=== PATIENT | female | born 1940 | race Caucasian/White ===

== ENCOUNTER 2016-12-19 20:53 | Inpatient (IN) ==
[2016-12-19 21:27] LABS: BASO% 0.1 % (0.0-0.8); EOS# 0.01 X1000 (0.0-0.7); EOS% 0.1 % (0.0-10.0); IMM GRAN# 0.13 X1000 (0.0-0.04); IMM GRAN% 0.8 % (0.0-0.5); LYMPH# 0.79 X1000 (1.2-3.4); LYMPH% 5.1 % (20.5-51.1); MANUAL DIFF NEEDED? NO; MCH 25.3 PG (27-31); MCV 93.7 FL (81-99); MONO# 1.13 X1000 (0.11-0.59); MONO% 7.3 % (1.7-9.3); MPV 10.4 FL (7.4-10.4); NEUT% 86.6 % (42.2-75.2); PLT 346 X1000 (130-400); RBC 3.95 XMIL (4.2-5.4)
[2016-12-19 21:33] LABS: BE 17.2 mmoll (-3.0-3.0); BLOOD TYPE ARTERIAL; DRAW SITE L RADIAL; METHB 0.7 % (0.0-1.5); O2(CT) 13.9 mL/dL (15.0-23.0); PO2(98.6) 88 mmHg (60-100); SAMPLE BLOOD; SAO2 97.8 % (95.0-100.0); THB 10.3 g/dL (11.5-17.4); pH(98.6) 7.27 (7.35-7.45)
[2016-12-19 21:51] LABS: ALLEN TEST YES; MODALITY CANNULA; PCO2(98.6) 104 mmHg (35-45)
[2016-12-19 22:08] LABS: AGAP 6; ALBUMIN 3.7 g/dL (3.5-5.0); ALKALINE PHOSPHATASE 160 U/L (32-104); BUN 18 mg/dL (8-22); CHLORIDE 95 mmol/L (98-107); CK PROFILE 53 U/L (24-173); COSMO 282; GOT 14 U/L (10-30); GPT 11 U/L (10-36); POTASSIUM 4.9 mmol/L (3.5-5.1); SODIUM 139 mmol/L (136-145); TCO2 38 mmol/L (25-35); TOTAL PROTEIN 7.5 g/dL (6.3-8.3)
--- NOTE | 2016-12-20 00:18 | Diag Imaging Result Document ---
PROCEDURE NAME: CHEST-PORTABLE - 12/19/2016 SINGLE FRONTAL RADIOGRAPH OF THE CHEST: COMPARISON: 12/05/2016. FINDINGS: Mild increased lung markings at the lung bases are stable. There are no new consolidations. Cardiac silhouette is stable. There is no pleural fluid collection identified. IMPRESSION: Increased lung markings at the lung bases that are stable and may represent mild atelectasis.
--- NOTE | 2016-12-20 00:35 | PROVIDER DOCUMENTATION ---
This chart was entered by Joseph Agustin Scribe, acting as scribe for Kurtis Jaime DO. HPI-Respiratory General - General Chief Complaint: Shortness of Breath Stated Complaint: SOB Time Seen by Provider: 12/19/16 21:06 Source: patient Allergies/Adverse Reactions: Patient Allergies Allergy/AdvReac Type Severity Reaction Status Date / Time levofloxacin [From Levaquin] AdvReac Mild reddness Verified 10/05/16 15:30 at IV site Home Medications: Home Medication List Medication Instructions Recorded Confirmed Last Taken Type Azelastine/Fluticasone [Dymista 1 spray NS DAILY 08/04/13 11/07/16 10/05/16 History Nasal [place]] Gabapentin 300 mg PO TID 08/04/13 11/07/16 10/05/16 History Tiotropium [place] Inhaler 1 puff INH RTDAILY 08/04/13 11/07/16 11/06/16 History [Spiriva] Buspirone [Buspar] 15 mg PO BID #20 tablet 08/17/13 11/07/16 10/05/16 Rx Memantine [Namenda] 10 mg PO BID #20 tablet 08/17/13 11/07/16 11/06/16 Rx Multivit,Fe,Ca,FA & Min [Thera M 1 each PO DAILY #0 tablet 08/17/13 11/07/16 Rx Plus] Albuterol [Albuterol Neb] 0.083 mg INH [id number] 01/14/14 11/07/16 10/05/16 History Amino Acids/Protein Hydrolys 30 ml PO DAILY 01/14/14 11/07/16 10/05/16 History [Pro-Stat 101 Liquid] Fluticasone 50 Mcg Nasal [place] 1 spray MILES DAILY 01/14/14 11/07/16 10/05/16 History [Flonase] Melatonin 3 mg PO QHS 01/14/14 11/07/16 10/05/16 History Metoclopramide [Reglan] 5 mg PO TID 01/14/14 11/07/16 10/05/16 History Potassium Chloride E.r. [Klor-Con] 2 tab PO DAILY 01/14/14 11/07/16 10/05/16 History Solifenacin Succinate [Vesicare] 10 mg PO DAILY 01/14/14 11/07/16 10/05/16 History Polyethylene Glycol 3350 [Miralax] 17 gm PO BID 10/05/16 11/07/16 10/05/16 History Acetaminophen [Pain Relief] 325 mg PO Q4H PRN PRN 11/07/16 11/07/16 Unknown History Docusate Sodium [Dulcolax Stool 100 mg PO PRN PRN 11/07/16 11/07/16 Unknown History Softener] Furosemide [Lasix] 40 mg PO DAILY 11/07/16 11/07/16 Unknown History Hydrocortisone 1% Cream 1 applicator TOP DIRECTED 11/07/16 11/07/16 Unknown History Loperamide [Imodium] 2 mg PO PRN PRN 11/07/16 11/07/16 Unknown History Omeprazole [Prilosec] 20 mg PO DAILY 11/07/16 11/07/16 Unknown History Sertraline [Zoloft] 50 mg PO DAILY 11/07/16 11/07/16 Unknown History Apixaban [Eliquis] 5 mg PO BID #60 tablet 11/12/16 Unknown Rx CefDINIR [Omnicef] 300 mg PO BID #14 capsule 11/12/16 Unknown Rx Prednisone 20 mg PO DAILY #5 tablet 11/12/16 Unknown Rx - History of Present Illness-Resp Nature of Presenting Problem: 76 yo F presents to the ER with complaint of SOB and uncontrolled shaking. Pt also complains of abnormal generalized weakness and family states she is not acting normal. Pt appears to be jaundice and has a hx of dementia. Quality of Pain: reports: none Severity in ED: reports: mild Onset/Duration: reports: just prior to arrival Timing: reports: still present Cough Quality/Degree: reports: no cough Associated Symptoms: reports: shortness of breath, other (pt is shaking) Review of Systems - Adult - REVIEW OF SYSTEMS - ADULT Constitutional: denies: chills, fever Cardiovascular: denies: chest pain, palpitations Respiratory: reports: shortness of breath, wheezing. denies: cough Gastrointestinal: reports: vomiting. denies: abdominal pain, nausea Musculoskeletal: denies: back pain, neck pain All Other Systems: Reviewed and Negative Past History - Adult - PAST MEDICAL HISTORY-ADULT Review of Records: reports: Old Records Reviewed, Nursing Assessment Review, Medications Reviewed Major Childhood Illnesses: reports: denies history Cardiovascular: reports: HTN Respiratory: reports: COPD Gastrointestinal: reports: denies history Obstetrical/Gynecological: reports: denies history Genitourinary: reports: denies history Musculoskeletal: reports: denies history Neurological: reports: dementia Psychiatric: reports: anxiety Endocrine/Immune: reports: denies history Other Conditions: reports: denies history - PRIOR SURGERIES/PROCEDURES Surgical/Procedure History: reports: reviewed, not pertinent - PRIOR HOSPITALIZATIONS Prior Hospitalizations: reports: none - IMMUNIZATION STATUS Childhood Immunizations: See Nurse Assessment Flu Vaccine: See Nurse Assessment - FAMILY HISTORY Family History: reviewed, not pertinent Physical Exam-General - PHYSICAL EXAM-ADULT Initial Vital Signs Reviewed: Yes - CONSTITUTIONAL General Appearance: alert, mild distress - HEAD, EARS, NOSE, MOUTH & THROAT HENMT: normocephalic/atraumatic, moist mucous membranes - NECK Neck: non-tender, full range of motion, supple - SKIN Integumentary: warm/dry, jaundice Progress - PLAN OF CARE/RESULTS Progress/Plan/Lab Results: Vital Signs - 8 hr 12/19/16 20:54 12/19/16 21:52 12/20/16 00:27 Temperature 98.3 F Pulse Rate 110 H 114 H Respiratory Rate 20 22 Blood Pressure 133/78 105/73 O2 Sat by Pulse Oximetry 95 95 90 L Laboratory Results - last 24 hr 12/19/16 12/19/16 12/19/16 21:15 21:15 21:15 WBC 15.56 H RBC 3.95 L Hgb 10.0 L Hct 37.0 MCV 93.7 MCH 25.3 L MCHC 27.0 L RDW Std Deviation 17.2 H Plt Count 346 MPV 10.4 Immature Gran % (Auto) 0.8 H Neut % (Auto) 86.6 H Lymph % (Auto) 5.1 L Lake % (Auto) 7.3 Eos % (Auto) 0.1 Baso % (Auto) 0.1 Immature Gran # (Auto) 0.13 H Neut # (Auto) 13.48 H Lymph # (Auto) 0.79 L Lake # (Auto) 1.13 H Eos # (Auto) 0.01 Baso # (Auto) 0.02 Specimen Type Sample Site pH pCO2 pO2 HCO3 Base Excess Oxyhemoglobin ABG O2 Sat (Calculated) ABG O2 Saturation ABG Carboxyhemoglobin ABG Methemoglobin Ramon Test A-a O2 Difference Total Hemoglobin Lactate Liter Flow Blood Gas Modality FiO2 % Sodium 139 Potassium 4.9 Chloride 95 L Carbon Dioxide 38 H Anion Gap 6 BUN 18 Creatinine 0.8 Estimated GFR/1.73 m2 > 60 BUN/Creatinine Ratio 23 Glucose 152 H Calculated Osmolality 282 Calcium 9.0 Total Bilirubin 0.20 AST 14 ALT 11 Alkaline Phosphatase 160 H Ammonia Creatine Kinase 53 Troponin T < 0.010 Total Protein 7.5 Albumin 3.7 Globulin 4.0 Albumin/Globulin Ratio 1.0 12/19/16 12/19/16 21:19 21:40 WBC RBC Hgb Hct MCV MCH MCHC RDW Std Deviation Plt Count MPV Immature Gran % (Auto) Neut % (Auto) Lymph % (Auto) Lake % (Auto) Eos % (Auto) Baso % (Auto) Immature Gran # (Auto) Neut # (Auto) Lymph # (Auto) Lake # (Auto) Eos # (Auto) Baso # (Auto) Specimen Type ARTERIAL Sample Site L RADIAL pH 7.27 L pCO2 104 H* pO2 88 HCO3 38.3 H Base Excess 17.2 H Oxyhemoglobin 94.9 L ABG O2 Sat (Calculated) 13.9 L ABG O2 Saturation 97.8 ABG Carboxyhemoglobin 2.30 ABG Methemoglobin 0.7 Ramon Test YES A-a O2 Difference 39.0 Total Hemoglobin 10.3 L Lactate 0.50 Liter Flow 4.0 Blood Gas Modality CANNULA FiO2 % 36.0 Sodium Potassium Chloride Carbon Dioxide Anion Gap BUN Creatinine Estimated GFR/1.73 m2 BUN/Creatinine Ratio Glucose Calculated Osmolality Calcium Total Bilirubin AST ALT Alkaline Phosphatase Ammonia 53 H Creatine Kinase Troponin T Total Protein Albumin Globulin Albumin/Globulin Ratio Orders Category Date Time Status Admit - [facility] Routine AdmDCTranf 12/20/16 00:36 Ordered Cardiac Monitoring DIRECTED Care 12/19/16 21:09 Active Finger Stick Blood Sugar (ED) DIRECTED Care 12/19/16 21:09 Active Neurological Check Q4H Care 12/20/16 00:37 Active Oxygen Therapy- ED Nursing DIRECTED Care 12/19/16 21:09 Active Saline Loc DIRECTED Care 12/20/16 00:36 Active Saline Loc NOW Care 12/19/16 21:09 Active Vital Signs Order ARRIVAL TO ROOM Care 12/20/16 00:36 Active Regular Diet Diet 12/20/16 00:38 Active CHEST-PORTABLE [RAD] Stat Exams 12/19/16 21:[address] ABD/PELVIS W/ IV CONT ONLY [CT] Stat Exams 12/19/16 21:26 Taken HEAD W/O CONTRAST [CT] Stat Exams 12/19/16 21:26 Taken ABG [RESP] Routine Lab 12/19/16 21:19 Completed AMMONIA [CHEM] Stat Lab 12/19/16 21:40 Completed CBC WITH ELECTRONIC DIFF [HEME] Stat Lab 12/19/16 21:15 Completed CK PROFILE [SP CHEM] Stat Lab 12/19/16 21:15 Completed COMPREHENSIVE METABOLIC PANEL [CHEM] Stat Lab 12/19/16 21:15 Completed TROPONIN T Stat Lab 12/19/16 21:[address] W/POSS RFLX CULT [URINALYSIS] Stat Lab 12/19/16 22:57 Ordered 0.9% Sodium Chloride Inj [Ns] 1,000 ml Med 12/20/16 00:36 Ordered IV 125 mls/hr BIPAP Stat Oth 12/19/16 21:49 Active Pulse Oximetry Stat Oth 12/19/16 21:09 Active Telemetry [OM.EQ] Routine Oth 12/20/16 00:36 Active EKG [EKG] Stat Ther 12/19/16 21:09 Ordered Result Diagrams: 12/19/16 21:15 12/19/16 21:15 - EKG 1 Time of EKG reading by physician:: 21:15 EKG Read and Signed by:: Kurtis Jaime EKG Interpretation (*Must complete 3 of following elements*): Abnormal Rate: 115 Rhythm: undetermined Smock: normal QRS: normal ST Wave: non-specific ST changes (T wave abnormality, consider lateral ischemia) Comments: anteroseptal infarct, age undetermined - CT/MRI 1 CT Study: Abdomen, Pelvis Impression: Normal Comparison with other Films: no prior study CT Results: emphysema within lung base; mild cholelithiasis 2 CT Study: Head Impression: See EMR Report Comparison with other Films: changes noted CT Results: mild nonspecific periventricular and deep white matter disease, no skull fx - CONSULTS/PCP/HOSPITALIST Notification #1 *Consult/PCP/Hospitalist*: Hospitalist Time Discussed: 00:06 Reason/Comments: admit Consult Disposition: Admit Departure - Departure Time of Disposition Decision: 23:46 DIAGNOSIS: CO2 narcosis Dyspnea Qualifiers: Dyspnea type: unspecified Qualified Code(s): R06.00 - Dyspnea, unspecified Disposition: ADMITTED INPATIENT 09 Certified Medical Emergency: Emergent Condition: Good Referrals and Follow-Ups: None,PCP [Primary Care Provider] - - Critical Care Note This patient required my direct & personal management of CC.: No This chart was documented by the indicated scribe, (Joseph Agustin Scribe) and accurately reflects the services I performed and decisions made by me, Kurtis Jaime DO, as attested by the provider's signature.
[2016-12-20] MEDS ORDERED: NS 1,000 ML IV ONE (00:36)
[2016-12-20 00:48] LABS: BE 18.9 mmoll (-3.0-3.0); BLOOD TYPE ARTERIAL; DRAW SITE L RADIAL; METHB 0.4 % (0.0-1.5); O2(CT) 12.8 mL/dL (15.0-23.0); PO2(98.6) 63 mmHg (60-100); SAMPLE BLOOD; SAO2 94.3 % (95.0-100.0); THB 9.9 g/dL (11.5-17.4); pH(98.6) 7.27 (7.35-7.45)
[2016-12-20 01:18] LABS: ALLEN TEST YES; MODALITY BI PAP; PCO2(98.6) 108 mmHg (35-45)
--- NOTE | 2016-12-20 02:17 | EKG Report ---
Test Performed on : 12/19/2016 9:13:09 PM Test Reason : AMS Blood Pressure : / mmHG Vent. Rate : 115 BPM Atrial Rate : 089 BPM P-R Int : 000 ms QRS Dur : 108 ms QT Int : 334 ms P-R-T Axes : 000 056 077 degrees QTc Int : 462 ms Undetermined rhythm Anteroseptal infarct (cited on or before 04-AUG-2013) T wave abnormality, consider lateral ischemia Abnormal ECG When compared with ECG of 05-DEC-2016 07:34, Current undetermined rhythm precludes rhythm comparison, needs review Unconfirmed Result
[2016-12-20 07:20] LABS: BILIRUBIN URINE NEGATIVE (NEGATIVE); BLOOD URINE 3+ (NEGATIVE); CLARITY CLEAR (CLEAR); COLOR YELLOW; GLUCOSE URINE NEGATIVE (NEGATIVE); LEUKOCYTES URINE 1+ (NEGATIVE); NITRITE URINE NEGATIVE (NEGATIVE); PH URINE 6.5; PROTEIN URINE 1+(30 mg/dL) mg/dL (NEGATIVE); SP GRAVITY URINE 1.015; UROBILINOGEN URINE NORMAL
[2016-12-20 07:33] LABS: URINE CULTURE PL NEEDED? YES; URINE EPITHELIAL CELLS >10 /HPF (<10); URINE RBC 20-40 /HPF (<10); URINE SOURCE CLEAN CATCH; URINE WBC TNTC /HPF (<10)
--- NOTE | 2016-12-20 09:35 | Diag Imaging Result Document ---
PROCEDURE NAME: HEAD W/O CONTRAST - 12/19/2016 CT HEAD WITHOUT CONTRAST: COMPARISON: 11/06/2016. FINDINGS: There is stable patchy low attenuation in the periventricular and subcortical white matter suggesting [id number] microangiopathy. There is stable brain atrophy. There is no definite acute infarct given the limited sensitivity of CT versus MRI. There is no discrete intracranial mass, mass effect, or intracranial hemorrhage. Surrounding soft tissues and bony structures are essentially unremarkable and stable. IMPRESSION: Stable chronic changes. No evidence of acute intracranial pathology.
--- NOTE | 2016-12-20 10:24 | Diag Imaging Result Document ---
PROCEDURE NAME: CT ABD/PELVIS W/ IV CONT ONLY - 12/19/2016 CT ABDOMEN AND PELVIS WITH IV CONTRAST: COMPARISON: CT bony pelvis dated 11/06/2016. FINDINGS: There is pulmonary emphysema at the lung bases. There is patchy scarring and/or atelectasis at both lung bases. There is a 1.8 cm right hepatic lobe nodule exhibiting peripheral nodular enhancement. This enhancement pattern is highly suggestive of a hemangioma. No other liver masses are appreciated. There is evidence of high-dense small stone layering in the gallbladder lumen. No surrounding inflammatory change is appreciated. There is an indeterminate nodule arising from the right adrenal gland measuring up to 2.5 x 2.3 cm axially. Statistically, this probably represents an adrenal adenoma. Consider adrenal adenoma protocol CT of the abdomen including 15 minute delayed images given its size. The kidneys are unremarkable. There are a few colonic diverticula, but there is no evidence of diverticulitis. There is no evidence of bowel obstruction. The urinary bladder wall appears mildly thickened. This is likely , at least in part, due to incomplete distention. Correlate clinically to exclude mild cystitis. There is patchy aortic atherosclerotic calcification. There is no evidence of aneurysm. No focal inflammatory changes, free abdominal gas, or free fluid is identified, otherwise. The remainder of the solid viscera of the abdomen and pelvis and the remainder of the GI tract is essentially unremarkable. There is an old fracture at the inferior pubic ramus on the right that was acute on the previous pelvis CT. IMPRESSION: 1. Small nodule involving the right hepatic lobe as described with enhancement characteristics that are suggestive of a small hemangioma. 2. Prominent right adrenal mass that is indeterminate. Consider adrenal adenoma protocol CT. Please see above discussion. 3. Mild urinary bladder wall thickening that is probably, at least in part, due to incomplete distention. Correlate clinically to exclude cystitis. 4. Other incidental/nonacute findings detailed above. [facility]
[2016-12-20] MEDS ORDERED: ZOFRAN IV PRN (14:59)
[2016-12-20] MEDS ORDERED: DUONEB (A & A) INH PRN (15:00)
[2016-12-20] MEDS ORDERED: SODIUM CHLORIDE 0.9% INJ SCH (15:00)
[2016-12-20] MEDS: DUONEB (A & A) INH SCH ×3 (15:24→22:45)
--- NOTE | 2016-12-20 16:04 | HISTORY AND PHYSICAL ---
CHIEF COMPLAINT: Generalized weakness. HISTORY OF PRESENT ILLNESS: This is a 76-year-old female with a history of COPD, hypertension, pulmonary artery hypertension, dementia, DVT right lower extremity, atrial fibrillation chronic, questionable history of alcohol use and chart review. She was found to have a CO2 of 108 in hypercapnic respiratory failure, leukocytosis and UTI. She was placed on bipap in the emergency room and admitted for further evaluation and treatment. PAST SURGICAL HISTORY: Cataract removal, hemorrhoidectomy. SOCIAL HISTORY: She is an ex-smoker quitting approximately 15 years ago. She denies any illicit drug use. She does have a history of alcohol use and abuse according to the chart with a questionable history of chronic pancreatitis. ALLERGIES: Levaquin which causes redness at the IV site. HOME MEDICATIONS: A list will be obtained. REVIEW OF SYSTEMS: Unable to obtain from the patient. PHYSICAL EXAMINATION: GENERAL: This is a 76-year-old female who is sitting in the bed obtunded at present after removing BiPAP. VITAL SIGNS: Blood pressure is 144/60 with a heart rate of 108, respiratory rate is 14, temperature is 97.8 degrees axillary with oxygen saturation of 58% on room air. She is currently up to 91% on BiPAP. HEENT: Head is normocephalic, atraumatic. Pupils are equal, round, react to light. EOMs are intact. Mucous membranes are dry. CARDIOVASCULAR: She is tachycardic with a regular rate and rhythm. S1 and S2 appreciated. PULMONARY: She has scattered wheezes and rhonchi throughout. She is diminished at the bases with no increased work of breathing. She is currently on BiPAP at 40%. GASTROINTESTINAL: Abdomen is soft, nontender, nondistended. Bowel sounds in all 4 quadrants. EXTREMITIES: No clubbing, cyanosis, or edema. Pulses are palpable x4. Calves are nontender. NEUROLOGIC: She is obtunded at present after pulling BiPAP off and oxygen saturation dropping. DIAGNOSTICS: WBC is 15.5 with a hemoglobin 10, hematocrit 37 and platelets of 346,000. Sodium is 139, potassium 4.9, BUN 18, creatinine 0.8 with a glucose of 152. Alkaline phosphatase is 160 with AST 14, ALT 11 and ammonia 53. Urinalysis reveals 20-40 microscopic red blood cells, too numerous to count white blood cells, 2+ bacteria. ABGs pH 7.2 with a pCO2 of 108, a PO2 of 63 and a bicarb of 39.6, this was at midnight and BiPAP was placed at this time at 36% and 14/6. Chest x-ray revealed increased markings at the lung bases that may represent mild atelectasis. CT of the head revealed no acute processes. CT of the abdomen and pelvis revealed small nodule involving the right hepatic lobe with enhancement characteristics that are suggestive of small hemangioma, a prominent right adrenal mass that is indeterminate, mild urinary bladder wall thickening in part due to distention, clinically correlate to exclude cystitis. ASSESSMENT AND PLAN: 1. Urinary tract infection. Urine culture is pending. Rocephin, Zithromax. 2. Acute hypercapnic respiratory failure. Causes could be multifactorial. The patient does have a history of noncompliance and she does have bilateral atelectasis on her CT scan. Will continue with BiPAP. 3. Chronic obstructive pulmonary disease, acute exacerbation. Will give steroids to taper, DuoNeb q.4 hours to q.2 hours p.r.n. Will identify her home medications and continue as appropriate. 4. Bilateral lower lobe atelectasis. Will obtain blood cultures. Will continue BiPAP with pulmonary toilet and Rocephin and Zithromax IV. 5. Leukocytosis. This is most likely from urinary tract infection given the fact that it could also be from her lungs as she does have bilateral atelectasis. Antibiotics as above. Will trend labs. 6. Recent right lower extremity deep venous thrombosis. Will continue her Eliquis. 7. Hypertension. Will identify her home medications and continue. 8. History of atrial fibrillation, aware. 9. questionable history of alcohol use and abuse per past history and physicals with questionable chronic pancreatitis. We will trend her labs. We will check amylase and lipase. Her ammonia was just elevated at 53. Will repeat that in the morning. Will attempt to verify her alcohol use. Further treatments pending hospital course. Dictated by VANDANA Jauregui for Loc Bran MD cc: VANDANA Jauregui MD [facility]
[2016-12-20] MEDS: PROTONIX IV SCH (16:30)
[2016-12-20] MEDS: SOLU-MEDROL IV SCH ×2 (16:30→22:09)
[2016-12-20] MEDS: ROCEPHIN 1 GM/NS 1 GM/50 ML IVPB IV SCH (16:30)
[2016-12-20] MEDS: XANAX PO PRN (16:31)
[2016-12-20] MEDS: NS 1,000 ML IV SCH (16:31)
[2016-12-20] MEDS: ZITHROMAX 500 MG/NS 500 MG/250 ML IVPB IV SCH (17:02)
[2016-12-20] MEDS: ELIQUIS PO SCH (21:51)
[2016-12-20] MEDS: NAMENDA PO SCH (21:51)
[2016-12-20] MEDS: BUSPAR PO SCH (21:52)
[2016-12-21] MEDS: XANAX PO PRN ×2 (01:05→13:31)
[2016-12-21] MEDS: DUONEB (A & A) INH SCH ×5 (03:20→18:55)
[2016-12-21] MEDS: NS 1,000 ML IV SCH ×2 (05:04→17:56)
[2016-12-21 06:01] LABS: BE 16.2 mmoll (-3.0-3.0); BLOOD TYPE ARTERIAL; DRAW SITE L RADIAL; METHB 0.7 % (0.0-1.5); O2(CT) 12.3 mL/dL (15.0-23.0); PO2(98.6) 74 mmHg (60-100); SAMPLE BLOOD; SAO2 97.2 % (95.0-100.0); THB 9.2 g/dL (11.5-17.4); pH(98.6) 7.33 (7.35-7.45)
[2016-12-21 06:05] LABS: ALLEN TEST YES; MODALITY BI PAP; PCO2(98.6) 85 mmHg (35-45)
[2016-12-21] MEDS: SOLU-MEDROL IV SCH ×3 (06:10→22:00)
[2016-12-21 06:37] LABS: AGAP 5; ALBUMIN 3.1 g/dL (3.5-5.0); ALKALINE PHOSPHATASE 130 U/L (32-104); AMYLASE 30 U/L (20-200); BUN 18 mg/dL (8-22); CALCIUM 8.6 mg/dL (8.8-10.2); CHLORIDE 97 mmol/L (98-107); COSMO 280; GOT 11 U/L (10-30); GPT 9 U/L (10-36); LIPASE 15 U/L (13-60); MAGNESIUM 1.9 mg/dL (1.5-2.7); POTASSIUM 4.6 mmol/L (3.5-5.1); SODIUM 139 mmol/L (136-145); TCO2 37 mmol/L (25-35); TOTAL PROTEIN 6.4 g/dL (6.3-8.3)
[2016-12-21 06:49] LABS: HEMATOCRIT 33.2 % (37.0-47.0); HEMOGLOBIN 8.9 g/dL (12.0-16.0); MCHC 26.8 g/dL (33-37); MCV 93.3 FL (81-99); MPV 10.7 FL (7.4-10.4); RBC 3.56 XMIL (4.2-5.4)
[2016-12-21] MEDS: SPIRIVA INH SCH (07:13)
--- NOTE | 2016-12-21 10:01 | PROGRESS NOTE ---
DATE: 12/21/2016 SUBJECTIVE: Patient states that she is feeling better. She has been on BiPAP since admission. She denies chest pain or palpitations. OBJECTIVE: Vital Signs: Blood pressure is 123/64 with a heart rate of 90, respirations are 20- 22, temperature 98.3 degrees, with oxygen saturations being 97-98 on BiPAP at 30 % O2. Cardiovascular: Regular rate and rhythm. S1 and S2 are appreciated. Pulmonary : Breath sounds are diminished throughout. They are clear with no increased work of breathing while on BiPAP. Gastrointestinal: Soft, nontender, nondistended. Bowel sounds in all 4 quadrants. Musculoskeletal: Good range of motion to joints. Extremities: No clubbing, cyanosis, or edema. Calves are nontender. Pulses are palpable x4. : Wheatley is patent with mickie urine draining. Neurologic: She is alert and oriented x4. LAB: WBC is 6.25 with hemoglobin of 8.9, hematocrit 33.2, and platelets of 290, 000. Sodium is 139, potassium 4.6, BUN is 18, creatinine 0.6 with a glucose of 103. Ammonia is 26, alkaline phosphatase is 130. ABGs, pH is 7.33, with a pCO2 of 85, a PO2 of 74, and a bicarb of 37.5; this is on 36% oxygen and BiPAP 18/6. Blood cultures and urine cultures are pending. ASSESSMENT AND PLAN: 1. Urinary tract infection. Urine culture is pending. Rocephin and Zithromax. 2. Acute hypercapnic respiratory failure. We will continue with BiPAP. The patient does well while on BiPAP. When she has taken off, after about 5 minutes patient's heart rate did increase to the 120s to 130s, although she does feel comfortable at this. In review of her past records, her CO2 stays it in the 70-80 range. We will attempt to wean BiPAP. 3. Chronic obstructive pulmonary disease, acute exacerbation. We will continue with steroids to taper, DuoNeb q.4 with q.2 p.r.n. 4. Bilateral lower lobe atelectasis. Blood cultures are pending. We will continue pulmonary toilet, Rocephin, and Zithromax. 5. Leukocytosis. This has resolved. We will continue with her current treatment. 6. Right lower extremity deep venous thrombosis. We will continue Eliquis. 7. Hypertension. Will continue to follow vital signs. Blood pressure has been in the 105-130 range over 50s and 60s. 8. History of atrial fibrillation. Aware. 9 History of alcohol abuse 10. Deep vein thrombosis prophylaxis. We will continue Eliquis. 11. Gastrointestinal prophylaxis. Protonix. Dictated by VANDANA Jauregui for Loc Bran MD cc: VANDANA Jauregui MD [facility]
[2016-12-21] MEDS: BUSPAR PO SCH ×2 (10:21→21:57)
[2016-12-21] MEDS: NAMENDA PO SCH ×2 (10:22→21:57)
[2016-12-21] MEDS: ELIQUIS PO SCH ×2 (10:22→21:57)
[2016-12-21] MEDS ORDERED: M.V.I.-12 10 ML, FOLIC ACID 1 MG, MAGNESIUM SULFATE 1 GM, THIAMINE 100 MG in NS 1,000 ML IV ONE (10:44)
[2016-12-21] MEDS: LIBRIUM PO SCH ×2 (11:35→19:42)
[2016-12-21] MEDS ORDERED: CARDIZEM PO SCH (13:00)
--- NOTE | 2016-12-21 14:49 | EKG Report ---
Test Performed on : 12/21/2016 2:33:27 PM Test Reason : Rhythm Change Blood Pressure : / mmHG Vent. Rate : 144 BPM Atrial Rate : 129 BPM P-R Int : 000 ms QRS Dur : 102 ms QT Int : 262 ms P-R-T Axes : 000 094 082 degrees QTc Int : 405 ms Atrial fibrillation. with rapid ventricular response. Anterolateral infarct (cited on or before 04-AUG-2013) Abnormal ECG When compared with ECG of 19-DEC-2016 21:13, Previous ECG has undetermined rhythm, needs review Questionable change in initial forces of Lateral leads ST no longer depressed in Inferior leads Confirmed by Peter Meadows MD ([id number]) on 01/14/2017 10:16:01 PM
[2016-12-21] MEDS: CARDIZEM 100 MG/NS 100 MG/100 ML IVPB IV SCH (15:10)
[2016-12-21] MEDS: PROTONIX IV SCH (15:21)
[2016-12-21] MEDS: ROCEPHIN 1 GM/NS 1 GM/50 ML IVPB IV SCH (15:22)
[2016-12-21] MEDS: ZITHROMAX 500 MG/NS 500 MG/250 ML IVPB IV SCH (15:53)
[2016-12-22] MEDS: DUONEB (A & A) INH SCH ×7 (01:56→23:00)
[2016-12-22] MEDS: LIBRIUM PO SCH ×3 (02:33→17:49)
[2016-12-22] MEDS: NS 1,000 ML IV SCH ×3 (02:40→20:30)
[2016-12-22 05:51] LABS: BE 13.6 mmoll (-3.0-3.0); BLOOD TYPE ARTERIAL; DRAW SITE L RADIAL; METHB 1.1 % (0.0-1.5); O2(CT) 12.7 mL/dL (15.0-23.0); PO2(98.6) 77 mmHg (60-100); SAMPLE BLOOD; SAO2 97.1 % (95.0-100.0); THB 9.5 g/dL (11.5-17.4); pH(98.6) 7.32 (7.35-7.45)
[2016-12-22 05:55] LABS: ALLEN TEST YES; MODALITY BI PAP; PCO2(98.6) 82 mmHg (35-45)
--- NOTE | 2016-12-22 05:58 | EKG Report ---
Test Performed on : 12/22/2016 02:35:06 AM Test Reason : verify rhythm change Blood Pressure : / mmHG Vent. Rate : 085 BPM Atrial Rate : 085 BPM P-R Int : 156 ms QRS Dur : 110 ms QT Int : 376 ms P-R-T Axes : 000 137 143 degrees QTc Int : 447 ms Suspect arm lead reversal, interpretation assumes no reversal Sinus rhythm. with marked sinus arrhythmia. Anterolateral infarct (cited on or before 04-AUG-2013) Abnormal ECG When compared with ECG of 21-DEC-2016 14:33, (Unconfirmed) Sinus rhythm. has replaced Atrial fibrillation. Vent. rate has decreased BY 59 BPM Confirmed by Peter Meadows MD ([id number]) on 01/14/2017 10:15:44 PM
[2016-12-22] MEDS: SOLU-MEDROL IV SCH ×3 (06:01→23:55)
[2016-12-22 06:10] LABS: AGAP 6; ALBUMIN 3.2 g/dL (3.5-5.0); ALKALINE PHOSPHATASE 120 U/L (32-104); BUN 16 mg/dL (8-22); CALCIUM 8.3 mg/dL (8.8-10.2); CHLORIDE 98 mmol/L (98-107); COSMO 281; GOT 10 U/L (10-30); GPT 8 U/L (10-36); HEMATOCRIT 32.5 % (37.0-47.0); HEMOGLOBIN 8.7 g/dL (12.0-16.0); MCHC 26.8 g/dL (33-37); MCV 93.4 FL (81-99); MPV 10.5 FL (7.4-10.4); POTASSIUM 4.6 mmol/L (3.5-5.1); RBC 3.48 XMIL (4.2-5.4); SODIUM 139 mmol/L (136-145); TCO2 35 mmol/L (25-35); TOTAL BILIRUBIN < 0.15 mg/dL (0.20-1.00); TOTAL PROTEIN 6.1 g/dL (6.3-8.3)
[2016-12-22] MEDS ORDERED: VANCOMYCIN IV PER PHARMACY MISC SCH (07:15)
[2016-12-22] MEDS: SPIRIVA INH SCH (07:40)
[2016-12-22] MEDS: CARDIZEM 100 MG/NS 100 MG/100 ML IVPB IV SCH (07:53)
[2016-12-22] MEDS ORDERED: VANCOMYCIN 1,900 MG in NS 500 ML IV ONE (08:00)
[2016-12-22] MEDS: ELIQUIS PO SCH ×2 (08:01→20:30)
[2016-12-22] MEDS: BUSPAR PO SCH ×2 (08:01→20:30)
[2016-12-22] MEDS: NAMENDA PO SCH ×2 (08:01→20:30)
[2016-12-22] MEDS: ROCEPHIN 1 GM/NS 1 GM/50 ML IVPB IV SCH (15:00)
[2016-12-22] MEDS: PROTONIX IV SCH (15:05)
[2016-12-22] MEDS: ZITHROMAX 500 MG/NS 500 MG/250 ML IVPB IV SCH (15:07)
[2016-12-22] MEDS ORDERED: BLISTEX MEDICATED BERRY LIP BALM TOP PRN (17:08)
--- NOTE | 2016-12-22 17:54 | EKG Report ---
Test Performed on : 12/22/2016 3:38:50 PM Test Reason : Verify Rhythm change Blood Pressure : / mmHG Vent. Rate : 122 BPM Atrial Rate : 120 BPM P-R Int : 000 ms QRS Dur : 116 ms QT Int : 284 ms P-R-T Axes : 000 061 078 degrees QTc Int : 404 ms Atrial fibrillation. with rapid ventricular response. Anterolateral infarct (cited on or before 04-AUG-2013) Abnormal ECG When compared with ECG of 22-DEC-2016 02:35, (Unconfirmed) Atrial fibrillation. has replaced Sinus rhythm. Nonspecific T wave abnormality has replaced inverted T waves in Lateral leads Unconfirmed Result
[2016-12-22] MEDS: ZOSYN 3.375 GM/NS 3.375 GM/50 ML IVPB IV SCH (20:29)
[2016-12-23] MEDS: ZOSYN 3.375 GM/NS 3.375 GM/50 ML IVPB IV SCH ×4 (01:44→20:39)
[2016-12-23] MEDS: LIBRIUM PO SCH (02:48)
[2016-12-23] MEDS: DUONEB (A & A) INH SCH ×5 (02:50→23:08)
[2016-12-23] MEDS: CARDIZEM 100 MG/NS 100 MG/100 ML IVPB IV SCH ×2 (05:59→20:38)
[2016-12-23] MEDS: SOLU-MEDROL IV SCH (06:00)
[2016-12-23] MEDS ORDERED: VANCOMYCIN 1,400 MG in NS 250 ML IV SCH (08:00)
[2016-12-23] MEDS: SPIRIVA INH SCH (08:18)
--- NOTE | 2016-12-23 08:43 | PROGRESS NOTE ---
DATE: 12/23/2016 SUBJECTIVE: The patient is lying in the ICU bed. She is awake, alert. She complains of some shortness of breath but really denies any complaints currently. OBJECTIVE: Vital Signs: Reviewed. She is currently on a Ventimask to keep saturations greater than 90%. Heart rate is 105-110, irregular. Blood pressure is stable. General: Patient is in moderate distress secondary to respiratory issues. She is awake, alert, pleasant to talk with. Neck: Supple. Chest: Relatively clear with occasional wheezing, improved from yesterday's exam. CV: Irregular rate, irregular rhythm. Abdomen: Soft. Extremities: Moves all extremities. Neurologic: No changes. Skin: Warm and dry. No rashes. ASSESSMENT: 1. Atrial fibrillation with rapid ventricular response. Continue Cardizem. 2. Chronic obstructive pulmonary disease with moderate exacerbation. Continue breathing treatments, oxygen, antibiotics, steroids. PLAN: We will continue to follow. cc: Loc Bran MD
[2016-12-23] MEDS ORDERED: SOLU-MEDROL IV ONE (09:45)
[2016-12-23] MEDS: ELIQUIS PO SCH ×2 (10:38→20:38)
[2016-12-23] MEDS: BUSPAR PO SCH (10:38)
[2016-12-23] MEDS: NAMENDA PO SCH ×2 (10:38→20:38)
[2016-12-23] MEDS: NS 1,000 ML IV SCH (10:39)
--- NOTE | 2016-12-23 10:42 | PROGRESS NOTE ---
DATE: 12/23/2016 SUBJECTIVE: This patient is having respiratory distress. I will increase the dose of the steroids and the frequency of breathing treatment. Her CO2 was still elevated. She has also a urinary tract infection. X-ray on admission did not show any infiltrates. I will ask for a new one today. Overall, this patient has moderate respiratory distress secondary to COPD exacerbation. OBJECTIVE: Vital Signs: Temperature 98.6 degrees, pulse 95, respiratory rate 26, blood pressure 103/53. Oxygen saturation 91% on 4 L of nasal cannula. HEENT: Normocephalic. No trauma. PERRLA. Neck supple. No JVD. No masses. Central trachea. Cardiovascular: Irregularly irregular rate and rhythm. Chest: Decreased breath sounds globally with generalize scattered rhonchi, mild rales at the bases, inspiratory and expiatory wheezing. Prolonged expiatory phase. Abdomen soft, nontender, nondistended. No hepatosplenomegaly. Extremities: No edema. No clubbing. No cyanosis. Neurologic: The patient is mildly somnolent but arousable. She is answering all my questions. She moves all 4 extremities. LABORATORY: WBC 5.6, hemoglobin 8.7, hematocrit 32.5, platelets 282,000. Blood gas with a pCO2 of 82. Sodium 139, potassium 4.6, chloride 98, bicarbonate 35. BUN 16, creatinine 0.5, glucose 141, calcium 8.3. ASSESSMENT AND PLAN: 1. Chronic obstructive pulmonary disease, [id number] exacerbation. This patient has been for the past 3 days with the BiPAP machine with no improvement. She has been having chronic obstructive pulmonary disease for a very long time, and she is being evaluated but our team as well. At this moment, she is on antibiotics, breathing treatment, pulmonary toilet, and steroids. 2. Atrial fibrillation with rapid ventricular response. At this moment, this patient is on diltiazem drip and anticoagulation. The heart rate has been going up and down. At this moment, it is a little bit stable at 100. This patient is not complaining of shortness of breath. 3. Urinary tract infection. Continue with Rocephin. We have a positive culture that showed Escherichia coli and Enterococcus faecalis sensitive to ceftriaxone. 4. History of pulmonary artery hypertension, aware. Continue with the same management. 5. Deep venous thrombosis, right lower extremity. This patient is on anticoagulation. 6. Dementia, aware. 7. Questionable history of alcohol use. This patient states that she has not been drinking for a very long time. I will stop her Librium, and I will keep an eye on her. This patient, today, is having more respiratory distress. She will benefit from Pulmonary and Cardiology evaluation at this moment. She has been having [id number] chronic obstructive pulmonary disease exacerbation and, for the past 3 days, she has been on BiPAP without improvement. Also, she is having atrial fibrillation and RVR, and she is on Cardizem drip. Hopefully, if we can find a bed in [facility], this patient will be transferred for further evaluation and treatment. CRITICAL CARE TIME: 35 minutes. cc: Howie Ford MD
--- NOTE | 2016-12-23 10:43 | Diag Imaging Result Document ---
PROCEDURE NAME: CHEST-PORTABLE - 12/23/2016 CHEST, SINGLE VIEW: INDICATION: Shortness of breath. COMPARISON: 12/19/2016. FINDINGS: This examination was performed portably. There has been a suboptimal inspiratory result with crowding of the basilar bronchovascular structures. 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 There has been no change from the prior studies. No acute abnormalities are appreciated. IMPRESSION: Stable basilar fibrosis. No acute findings.
[2016-12-23] MEDS ORDERED: SOLU-MEDROL IV SCH (15:00)
[2016-12-23] MEDS: PROTONIX IV SCH (15:11)
[2016-12-23] MEDS: ZITHROMAX 500 MG/NS 500 MG/250 ML IVPB IV SCH (17:06)
--- NOTE | 2016-12-23 20:11 | HISTORY AND PHYSICAL ---
This patient was transferred from [facility]. HISTORY OF PRESENT ILLNESS: This is a 76-year-old who was admitted to [facility] with history of COPD, hypertension, pulmonary arterial hypertension, dementia, DVT the right lower extremity, arterial atrial fibrillation, chronic questionable history of alcohol use, CO2 was 108, leukocytosis and UTI was placed on BiPAP in the emergency room. Admitted for evaluation and treatment. PAST HISTORY: Cataract removal, history of hemorrhoidectomy. SOCIAL HISTORY: Ex-smoker quit approximately 15 years ago. Denies any illicit drug use. Denies any history of alcohol use or abuse according to the chart and questionable history of chronic pancreatitis. ALLERGIES: Levaquin causes redness IV site. REVIEW OF SYSTEMS: Unable to obtain from the patient time admission. PHYSICAL EXAM: VITAL SIGNS: The patient has remained afebrile. Pulse 80. Respirations 20. Blood pressure 109/60. EYES: Pupils equal, round. LUNGS: CVP approximately 8 cm water pressure lungs. There were irregular rhythm irregular rate, decreased breath sounds globally generalized with scattered rhonchi, mild rales in the bases, inspiratory and expiratory wheezes, prolonged expiratory phase. ABDOMEN: Soft, nontender, nondistended. No hepatosplenomegaly. No cyanosis. NEUROLOGIC: Patient was mildly somnolent but arousable. LAB: White count 5600, hemoglobin 8.7, hematocrit 32, platelets 282,000, blood gases pCO2 is 82. Sodium 139, potassium 4.6, chloride 98, bicarb 35, BUN 16, creatinine 0.5, blood sugar 141, calcium 8.3. ASSESSMENT AND PLAN: 1. Chronic obstructive pulmonary disease moderate to severe exacerbation. Patient has been for the past 3 days BiPAP machine with no improvement. She has been having chronic obstructive pulmonary disease very long time and evaluated by the team, felt they wanted to transfer over here see if we can improve her breathing status. 2. Atrial fibrillation with rapid ventricular rate. The patient on diltiazem drip and anticoagulant. Heart rate still going up and down. 3. Urinary tract infection treated with Rocephin. 4. History of pulmonary arterial hypertension. Continue same management. 5. Deep venous thrombosis right lower extremity on anticoagulation. 6. Dementia. 7. Questionable history of alcohol use. The patient states that she has not been drinking for a very long time. She was on some Librium so sent over here to help with pulmonary and cardiology evaluation, continue present orders. cc: Ramon Davidson MD
[2016-12-23] MEDS: XANAX PO PRN (20:38)
[2016-12-23] MEDS ORDERED: XANAX PO PRN (21:05)
[2016-12-23] MEDS ORDERED: DUONEB (A & A) INH PRN (21:05)
[2016-12-23] MEDS ORDERED: ZOFRAN IV PRN (21:11)
[2016-12-23] MEDS ORDERED: BLISTEX MEDICATED BERRY LIP BALM TOP PRN (21:12)
[2016-12-23] MEDS ORDERED: CARDIZEM 100 MG/NS 100 MG/100 ML IVPB IV SCH (22:00)
[2016-12-24] MEDS: SOLU-MEDROL IV SCH ×4 (00:15→22:00)
[2016-12-24] MEDS: ELIQUIS PO SCH ×3 (03:13→20:10)
[2016-12-24] MEDS: NAMENDA PO SCH ×3 (03:14→20:11)
[2016-12-24] MEDS: NS 1,000 ML IV SCH ×3 (03:14→17:27)
[2016-12-24] MEDS: ZOSYN 3.375 GM/NS 3.375 GM/50 ML IVPB IV SCH ×4 (03:15→20:10)
[2016-12-24] MEDS: DUONEB (A & A) INH SCH ×6 (03:43→23:02)
[2016-12-24 04:53] LABS: ALLEN TEST YES; BE 7.9 mmoll (-3.0-3.0); BLOOD TYPE ARTERIAL; DRAW SITE R RADIAL; METHB 1.3 % (0.0-1.5); O2(CT) 16.3 mL/dL (15.0-23.0); PO2(98.6) 139 mmHg (60-100); SAMPLE BLOOD; SAO2 98.3 % (95.0-100.0); THB 11.9 g/dL (11.5-17.4); pH(98.6) 7.23 (7.35-7.45)
[2016-12-24 04:54] LABS: MODALITY BI PAP; PCO2(98.6) 92 mmHg (35-45)
[2016-12-24 05:06] LABS: HEMATOCRIT 31.9 % (37.0-47.0); HEMOGLOBIN 8.6 g/dL (12.0-16.0); IMM GRAN# 0.03 X1000 (0.0-0.04); IMM GRAN% 0.6 % (0.0-0.5); LYMPH% 6.4 % (20.5-51.1); MANUAL DIFF NEEDED? YES; MCH 25.6 PG (27-31); MCV 94.9 FL (81-99); MONO# 0.18 X1000 (0.11-0.59); MONO% 3.8 % (1.7-9.3); MPV 10.5 FL (7.4-10.4); NEUT% 89.2 % (42.2-75.2); PLT 246 X1000 (130-400); RBC 3.36 XMIL (4.2-5.4)
[2016-12-24 05:18] LABS: AGAP 4; BUN 16 mg/dL (8-22); CALCIUM 8.4 mg/dL (8.8-10.2); CHLORIDE 106 mmol/L (98-107); COSMO 290; POTASSIUM 4.6 mmol/L (3.5-5.1); SODIUM 144 mmol/L (136-145); TCO2 34 mmol/L (25-35)
[2016-12-24 06:36] LABS: LYMPHS 10 % (21-51); MONO 2 % (1-9)
[2016-12-24 06:37] LABS: HYPOCHROM 2+
[2016-12-24] MEDS: SPIRIVA INH SCH (07:34)
[2016-12-24 07:56] LABS: ALLEN TEST YES; BE 7.1 mmoll (-3.0-3.0); BLOOD TYPE ARTERIAL; DRAW SITE L RADIAL; METHB 1.5 % (0.0-1.5); PO2(98.6) 132 mmHg (60-100); SAMPLE BLOOD; SAO2 99.6 % (95.0-100.0); THB 12.4 g/dL (11.5-17.4); pH(98.6) 7.27 (7.35-7.45)
[2016-12-24 07:57] LABS: MODALITY BI PAP
[2016-12-24 08:00] LABS: PCO2(98.6) 80 mmHg (35-45)
[2016-12-24] MEDS: BUSPAR PO SCH ×2 (08:21→20:12)
--- NOTE | 2016-12-24 09:11 | PROGRESS NOTE ---
DATE: 12/24/2016 SUBJECTIVE: Remains afebrile. She is awake and alert. States she feels like she is breathing better. OBJECTIVE: Vital signs: Temperature 97.4 degrees, pulse 120, respirations 20, blood pressure 83/55. Blood pressures have ranged from 83-121/55-63. Lungs: Clear in all lung kay. Cardiovascular: Regular rhythm and rate without murmur or S3. Abdomen: Soft. Skin: Warm and dry. Urine output was 2 0.5 L. LAB: White count 4680, hematocrit 31, platelet count 246,000. Chemistry: Sodium 144, potassium 4.6, chloride 106. BUN 16, creatinine 0.6. Calculated osmolality 290. Her blood gases this morning pH was 7.27, pCO2 80, pO2 was 132. O2 saturation was 96%. This is on BiPAP 50% FiO2, 14/8. Poor inspiratory to expiratory pressure. ASSESSMENT AND PLAN: 1. Chronic obstructive pulmonary disease, moderate to severe exacerbation. The patient has been in the past 3 days on BiPAP machine and showed some improvement in gas and air exchange. Pulmonary and cardiology to follow. 2. Atrial fibrillation. Ventricular rate appears controlled. The patient is on a Cardizem drip and anticoagulant. 3. Urinary tract infection, treated with Rocephin. 4. Pulmonary arterial hypertension, aware. 5. Deep venous thrombosis right lower extremity. On anticoagulant. 6. History of dementia. 7. Questionable history of alcohol use and apparently she has not been drinking for a long time. Looking over orders I do not see any changes at this point. Chest x-ray from yesterday shows stable basilar fibrosis. No acute findings. Review of orders on vancomycin, Spiriva inhaler, Zosyn, Protonix 40 mg IV q.24 hours, Methylprednisone 60 mg IV q.8 hours, diltiazem drip, BuSpar 50 mg b.i.d., azithromycin 500 mg q.24 hours, Eliquis 5 mg b.i.d., Xanax 0.125 mg b.i.d., albuterol, and normal saline 75 mL an hour. cc: Ramon Davidson MD
--- NOTE | 2016-12-24 09:25 | CONSULTATION ---
DATE OF CONSULTATION: 12/24/2016 CHIEF COMPLAINT: Shortness of breath. HISTORY OF PRESENT ILLNESS: This 76-year-old female with a past medical history of COPD, hypertension, pulmonary artery hypertension, dementia, DVT and atrial fibrillation was sent from [place] to [facility] for evaluation of her COPD exacerbation and atrial fibrillation with rapid ventricular response. The patient is pretty lethargic at this time and not really answering questions in detail, so her history was gleaned from medical records. REVIEW OF SYSTEMS: Unable to obtain at this time. PAST MEDICAL HISTORY: As mentioned in HPI, otherwise noncontributory. PAST SURGICAL HISTORY: Cataract removal. History of hemorrhoidectomy. SOCIAL HISTORY: Patient stopped smoking about 15 years ago. There is questionable history of alcohol abuse. ALLERGIES: Levaquin. PHYSICAL EXAMINATION: Vital Signs: Temperature 97.4, heart rate 120, respiratory rate 20, blood pressure 83/55, oxygen saturation 100%. General: Awake, sitting up in bed, wearing BiPAP. HEENT: Normocephalic and atraumatic. PERRL. Cardiovascular: Irregular rate. S1, S2 present. Chest: Reduced entry diminished bilaterally. Abdomen: Soft, nontender, nondistended. Bowel sounds present in all quadrants. Neurologic: Somnolent, but arousable. LABS AND INVESTIGATIONS: WBC 4.68, RBCs 3.36, hemoglobin 8.6, hematocrit 31.9 platelet count 246. Sodium 144, potassium 4.6, chloride 106, carbon dioxide 34, anion gap 4. BUN 16 , creatinine 0.6, glucose 236. Blood gas reveals a pH of 7.27, pCO2 of 80, PO2 of 132, HC03 of 30.4, base excess 7.1, saturated oxygen 99.6. Chest x-ray performed on 12/23/2016 shows no acute findings. ASSESSMENT AND PLAN: This is a 76-year-old, female, sent from [place] for evaluation of her atrial fibrillation with rapid ventricular response and chronic obstructive pulmonary disease exacerbation. Respiratory failure. She is currently wearing BiPAP and has had minimal improvement. She is also on a Cardizem drip and receiving Rocephin for UTI. Continue inhaled bronchodilators , intravenous steroids, antibiotics, Eliquis for deep vein thrombosis prophylaxis, Protonix for gastrointestinal prophylaxis, and further recommendations pending diagnostic studies. Thank you for the courtesy of this consult. Dictated by VANDANA Bolanos for Tomasa Washington MD cc: VANDANA Bolanos MD [facility]
[2016-12-24] MEDS: VANCOMYCIN 1,400 MG in NS 250 ML IV SCH (09:52)
[2016-12-24] MEDS: CARDIZEM CD PO SCH (11:53)
--- NOTE | 2016-12-24 12:02 | CONSULTATION ---
DATE OF CONSULTATION: 12/24/2016 HISTORY OF PRESENT ILLNESS: Cardiology consulted for atrial fibrillation rapid rate. Patient was put on a Cardizem drip and cardiology was consulted. She is a poor historian and she is placed on BiPAP machine. She does not complain of any chest pain. Has shortness of breath. Transferred from [place] where she was brought in from the long term, was noted to have a CO2 of 108. She has COPD. She denies chest pain or palpitations. History was not forthcoming. History was obtained from the chart. REVIEW OF SYSTEMS: Cardiovascular system: Does not complain of palpitations or chest pain. There is no nausea or vomiting. Genitourinary system: There is no dysuria or hematuria. PAST MEDICAL HISTORY: 1. Dementia. 2. Gastroesophageal reflux disease. 3. Atrial fibrillation diagnosed 2013. 4. Right leg DVT. 5. Hypertension. 6. Depression. 7. Anxiety. 8. Renal insufficiency in the past. 9. Hyperlipidemia. 10. COPD, emphysema, hypercholesterolemia. 11. Cataract removal. 12. Hemorrhoidectomy. ALLERGIES: She is allergic to levofloxacin. HOME MEDICATIONS: 1. Spiriva. 2. Dymista nasal drops. 3. Gabapentin 300 mg p.o. b.i.d. 4. BuSpar 15. 5. Amantadine 10 mg p.o. b.i.d. nebulizers. 6. Metoclopramide 5 mg p.o. t.i.d. 7. VESIcare. 8. Potassium supplements. 9. Omeprazole 20. 10. Lasix 40 mg a day. 11. Megace 12. Eliquis 5 mg p.o. b.i.d. 13. Multivitamins. 14. Zoloft. HABITS: She does not smoke. PHYSICAL EXAMINATION: Vital Signs: Blood pressure was 108/74, heart rate 106. Cardiovascular System: Normal jugular venous pressure. First and second heart sounds were heard. There was no S3 gallop. Respiratory System: Scattered wheeze. Abdomen: Soft, nontender. There was no guarding or rigidity. Bowel sounds were heard. Central nervous system: Alert, moving extremities. INFORMATION TECHNOLOGY AUDITOR: Detailed central nervous system examination not performed. LABORATORY EXAMINATION: Revealed sodium 144, potassium 4.6, BUN 16, creatinine 0.6. Cardiac enzymes negative. When she came in, blood gas pCO2 was 108. She has hypercapnic respiratory failure. ASSESSMENT AND PLAN: Ms. Mikki Goldstein is a 76-year-old, lady with history of atrial fibrillation in the past, deep vein thrombosis, hypertension, dementia, severe chronic obstructive pulmonary disease, renal insufficiency, who was noted to be in atrial fibrillation with rapid rate. Recommendations for chronic atrial fibrillation: We will change and start her on Cardizem CD 180 mg daily. We will give her digoxin for rate control as well. For stroke prophylaxis, she is on Eliquis. I have not made any changes. We will get an echocardiogram to assess cardiac and valvular function. She is on BiPAP for chronic obstructive pulmonary disease, respiratory failure. Would recommend continuing that. She is on antibiotics of Zosyn, as well as vancomycin for chronic obstructive pulmonary disease exacerbation and urinary tract infection. Thank you for the consult. We will follow. cc: William Damon MD
[2016-12-24] MEDS ORDERED: NS 250 ML ONE (12:22)
[2016-12-24 12:45] LABS: INR 1.36; PROTIME 14.6 Seconds (9.2-11.7)
--- NOTE | 2016-12-24 14:17 | Diag Imaging Result Document ---
PROCEDURE NAME: CHEST-PORTABLE - 12/24/2016 PORTABLE CHEST: COMPARISON: 12/23/2016. FINDINGS: Interval placement of a right sided PICC line. The tip overlies the distal superior vena cava. No pneumothorax. The heart is not enlarged. No consolidation. No pleural effusions identified. IMPRESSION: Right sided PICC line in good position.
[2016-12-24] MEDS: PROTONIX IV SCH (15:29)
[2016-12-24] MEDS: LANOXIN IV SCH ×2 (15:38→17:00)
[2016-12-24] MEDS ORDERED: ZITHROMAX 500 MG/NS 500 MG/250 ML IVPB IV SCH (17:00)
[2016-12-24] MEDS: XANAX PO PRN (20:11)
[2016-12-25] MEDS: NS 1,000 ML IV SCH ×2 (03:00→18:52)
[2016-12-25] MEDS: ZOSYN 3.375 GM/NS 3.375 GM/50 ML IVPB IV SCH ×4 (03:00→21:00)
[2016-12-25] MEDS: DUONEB (A & A) INH SCH ×6 (03:24→23:13)
[2016-12-25 04:47] LABS: ALLEN TEST YES; BE 10.2 mmoll (-3.0-3.0); BLOOD TYPE ARTERIAL; DRAW SITE R RADIAL; METHB 1.4 % (0.0-1.5); O2(CT) 12.6 mL/dL (15.0-23.0); PO2(98.6) 149 mmHg (60-100); SAMPLE BLOOD; SAO2 98.8 % (95.0-100.0); pH(98.6) 7.36 (7.35-7.45)
[2016-12-25 04:48] LABS: PCO2(98.6) 66 mmHg (35-45)
[2016-12-25 04:49] LABS: MODALITY BI PAP
[2016-12-25] MEDS: SOLU-MEDROL IV SCH ×3 (05:02→20:00)
[2016-12-25 05:57] LABS: AGAP 4; BUN 19 mg/dL (8-22); CALCIUM 8.4 mg/dL (8.8-10.2); CHLORIDE 105 mmol/L (98-107); COSMO 289; POTASSIUM 4.3 mmol/L (3.5-5.1); SODIUM 142 mmol/L (136-145); TCO2 33 mmol/L (25-35)
[2016-12-25 06:15] LABS: BASO% 0.2 % (0.0-0.8); EOS# 0.01 X1000 (0.0-0.7); EOS% 0.2 % (0.0-10.0); HEMATOCRIT 31.9 % (37.0-47.0); HEMOGLOBIN 8.6 g/dL (12.0-16.0); IMM GRAN# 0.05 X1000 (0.0-0.04); IMM GRAN% 1.2 % (0.0-0.5); LYMPH# 0.33 X1000 (1.2-3.4); LYMPH% 7.6 % (20.5-51.1); MANUAL DIFF NEEDED? YES; MCH 25.4 PG (27-31); MCV 94.4 FL (81-99); MONO% 4.6 % (1.7-9.3); MPV 10.8 FL (7.4-10.4); NEUT% 86.2 % (42.2-75.2); PLT 222 X1000 (130-400); RBC 3.38 XMIL (4.2-5.4)
--- NOTE | 2016-12-25 06:22 | EKG Report ---
Test Performed on : 12/25/2016 05:32:27 AM Test Reason : afib Blood Pressure : / mmHG Vent. Rate : 073 BPM Atrial Rate : 080 BPM P-R Int : 172 ms QRS Dur : 112 ms QT Int : 358 ms P-R-T Axes : 070 061 071 degrees QTc Int : 394 ms Normal sinus rhythm. with sinus arrhythmia. Low voltage QRS Anterolateral infarct (cited on or before 04-AUG-2013) Abnormal ECG When compared with ECG of 22-DEC-2016 15:38, Sinus rhythm. has replaced Atrial fibrillation. Vent. rate has decreased BY 49 BPM Confirmed by Pérez SANTILLAN, Roger Kurtz ([id number]) on 12/26/2016 7:14:43 AM
--- NOTE | 2016-12-25 07:10 | PROGRESS NOTE ---
DATE: 12/25/2016 SUBJECTIVE: Appears to be resting comfortably and breathing comfortably. PHYSICAL EXAMINATION: Vital Signs: Temperature 98.2 degrees, pulse 90, respirations 23, blood pressure 118/50. CVP less than 6 cm. Lungs: Anterolateral are clear. Cardiovascular Examination: Regular rhythm and rate. Extremities: No pedal edema. Is and Os: Urine output was close to 5 L. LABORATORY DATA: White count 4340, hematocrit is 31, platelet count 222,000. Sodium 142, potassium 4.3, chloride 105, bicarb 33, BUN 19, creatinine 0.7. EKG from this morning, normal sinus rhythm, loss of R-waves in the anteroseptal and precordial leads, low-voltage QRS. No significant change from previous EKG. ASSESSMENT AND PLAN: 1. History of atrial fibrillation in the past, history of deep venous thrombosis, hypertension, dementia, chronic obstructive pulmonary disease, renal insufficiency. Came into [facility] with atrial fibrillation and rapid rate. We did start her on Cardizem CD 180 mg by mouth daily and digoxin as well for rate. She is on Eliquis. Plan is to get an echocardiogram to assess left ventricular function. 2. Chronic obstructive pulmonary disease exacerbation, respiratory failure requiring BiPAP and converting over to supplementary oxygen by face mask. She is on antibiotics, Zosyn and vancomycin, for possible bronchopneumonia. 3. Urinary tract infection, treated, present antibiotics. 4. Pulmonary artery hypertension, aware. 5. History of deep venous thrombosis. 6. Apparently, a history of dementia. 7. Questionable history of alcohol use. Apparently, this is an old report, has not drank for a long time. 8. Review of her current lab today, creatinine is 2.7, sodium 142, potassium 4.3, chloride 105, bicarbonate 33. CBC: Hematocrit is stable, platelet count 222,000. REVIEW OF ORDERS: I do not see any changes at this point. On vancomycin 1400 mg q.24 hours, tiotropium bromide inhaler 1 puff daily, Zosyn 3.375 mg IV q.6, Protonix 40 mg IV q.24 hours, methylprednisone 60 mg IV q.6, Namenda 10 mg b.i.d., Cardizem CD 180 mg daily, digoxin 125 mcg daily, BuSpar 50 mg b.i.d., Eliquis 5 mg b.i.d., Xanax 0.125 mg t.i.d., and albuterol inhaler. cc: Ramon aDvidson MD
--- NOTE | 2016-12-25 07:27 | Diag Imaging Result Document ---
PROCEDURE NAME: CHEST-1 VIEW - 12/25/2016 PORTABLE CHEST X-RAY: COMPARISON: 12/24/2016. FINDINGS: Stable right PICC line. Stable mild cardiomegaly. Stable ill-defined bibasilar infiltrates, right greater than left, suggesting some edema and/or bronchitis. IMPRESSION: No change from prior.
[2016-12-25 07:47] LABS: LYMPHS 12 % (21-51); MONO 7 % (1-9)
[2016-12-25] MEDS: SPIRIVA INH SCH (07:50)
[2016-12-25] MEDS: BUSPAR PO SCH ×2 (08:14→20:01)
[2016-12-25] MEDS: ELIQUIS PO SCH ×2 (08:15→20:01)
[2016-12-25] MEDS: CARDIZEM CD PO SCH (08:15)
[2016-12-25] MEDS: LANOXIN PO SCH (08:15)
[2016-12-25] MEDS: VANCOMYCIN 1,400 MG in NS 250 ML IV SCH (09:45)
[2016-12-25] MEDS: NAMENDA PO SCH ×2 (11:20→20:00)
[2016-12-25] MEDS: PROTONIX IV SCH (14:24)
[2016-12-25] MEDS: XANAX PO PRN (20:01)
[2016-12-26] MEDS: XANAX PO PRN (02:11)
[2016-12-26] MEDS: ZOSYN 3.375 GM/NS 3.375 GM/50 ML IVPB IV SCH ×4 (02:12→21:07)
[2016-12-26] MEDS: NS 1,000 ML IV SCH ×3 (02:23→16:00)
[2016-12-26] MEDS: DUONEB (A & A) INH SCH ×6 (03:49→23:34)
[2016-12-26 04:50] LABS: ALLEN TEST YES; BLOOD TYPE ARTERIAL; DRAW SITE R RADIAL; METHB 1.6 % (0.0-1.5); O2(CT) 12.1 mL/dL (15.0-23.0); PO2(98.6) 97 mmHg (60-100); SAMPLE BLOOD; SAO2 98.1 % (95.0-100.0); THB 8.9 g/dL (11.5-17.4); pH(98.6) 7.27 (7.35-7.45)
[2016-12-26 04:51] LABS: MODALITY BI PAP; PCO2(98.6) 87 mmHg (35-45)
[2016-12-26 05:01] LABS: BASO% 0.2 % (0.0-0.8); HEMATOCRIT 32.3 % (37.0-47.0); HEMOGLOBIN 8.7 g/dL (12.0-16.0); IMM GRAN# 0.11 X1000 (0.0-0.04); IMM GRAN% 2.4 % (0.0-0.5); LYMPH# 0.27 X1000 (1.2-3.4); LYMPH% 5.9 % (20.5-51.1); MANUAL DIFF NEEDED? YES; MCH 25.4 PG (27-31); MCHC 26.9 g/dL (33-37); MCV 94.4 FL (81-99); MONO# 0.22 X1000 (0.11-0.59); MONO% 4.8 % (1.7-9.3); MPV 10.6 FL (7.4-10.4); NEUT% 86.7 % (42.2-75.2); PLT 203 X1000 (130-400); RBC 3.42 XMIL (4.2-5.4)
[2016-12-26 05:20] LABS: AGAP 6; BUN 20 mg/dL (8-22); CALCIUM 8.5 mg/dL (8.8-10.2); CHLORIDE 106 mmol/L (98-107); COSMO 300; POTASSIUM 3.9 mmol/L (3.5-5.1); SODIUM 146 mmol/L (136-145); TCO2 34 mmol/L (25-35)
[2016-12-26 05:22] LABS: BANDS 6 % (0-1); LYMPHS 10 % (21-51); MONO 4 % (1-9)
[2016-12-26] MEDS: SOLU-MEDROL IV SCH ×3 (05:36→21:06)
[2016-12-26] MEDS: SPIRIVA INH SCH (07:45)
--- NOTE | 2016-12-26 08:17 | Diag Imaging Result Document ---
PROCEDURE NAME: CHEST-1 VIEW - 12/26/2016 AP PORTABLE CHEST ERECT AT 0555 HOURS: FINDINGS: There is a pleural effusion on the right. There is ill-defined opacity in both lung bases particularly the right lower lobe. There is a PICC line with its tip in the superior vena cava. Compared to 12/25/2016, there has been very little change. There is some worsening compared to 12/24/2016. IMPRESSION: Pulmonary edema plus/minus pneumonia.
[2016-12-26] MEDS: BUSPAR PO SCH ×2 (08:59→21:07)
[2016-12-26] MEDS: LANOXIN PO SCH (09:00)
[2016-12-26] MEDS: ELIQUIS PO SCH ×2 (09:00→21:07)
[2016-12-26] MEDS: CARDIZEM CD PO SCH (09:00)
[2016-12-26] MEDS: NAMENDA PO SCH ×2 (09:00→21:07)
[2016-12-26] MEDS: VANCOMYCIN 1,400 MG in NS 250 ML IV SCH (10:41)
[2016-12-26] MEDS: LASIX IV SCH ×2 (12:41→21:06)
[2016-12-26] MEDS: SODIUM CHLORIDE 0.9% INJ SCH (15:52)
[2016-12-26] MEDS: PROTONIX IV SCH (15:52)
--- NOTE | 2016-12-26 19:29 | PROGRESS NOTE ---
DATE: 12/26/2016 SUBJECTIVE: The patient is resting comfortably on BiPAP. No acute events noted overnight. OBJECTIVE: Vital Signs: Temperature 97.6 degrees, blood pressure 139/56, heart rate 99, respirations 16, O2 saturations 97% on BiPAP. General: This is an elderly female, lying in bed, in no acute distress. Head: Normocephalic, atraumatic. Heart: S1, S2 normal. Tachycardic. Lungs: Equal air entry bilaterally. No crackles. Abdomen: Positive bowel sounds. Soft, nontender, nondistended. Extremities: Trace pedal edema. No cyanosis. No calf tenderness. Neurologic: The patient is currently resting. LABS: White blood cell count 4.5, hemoglobin 8.7, hematocrit 32, platelets 203, 000. Sodium 146, potassium 3.9, chloride 106, CO2 34, BUN 20, creatinine 0.6, glucose 214. Chest x-ray shows pulmonary edema with possible pneumonia. ASSESSMENT AND PLAN: 1. Acute hypercapnic respiratory failure secondary to pulmonary edema and pneumonia. The patient has been started on Lasix by the washateria attendant. Continue on broad-spectrum antibiotic therapy and bronchodilator therapy. 2. Pneumonia. Continue on current IV antibiotic regimen plus bronchodilator therapy. 3. Hypertension. Controlled. 4. Hypernatremia. We will discontinue the normal saline. 5. Anemia. We will check iron studies. 6. Urinary tract infection secondary to Enterococcus faecalis and E. coli. Continue on IV antibiotic therapy. 7. Pulmonary hypertension. Aware. 8. Chronic atrial fibrillation. Continue on Cardizem CD and digoxin. 9. Acute chronic obstructive pulmonary disease exacerbation. Continue on Solu- Medrol plus bronchodilator therapy. 10. Deep vein thrombosis prophylaxis. The patient is currently on Eliquis. cc: Shannen Martinez MD [facility]
[2016-12-27] MEDS: DUONEB (A & A) INH SCH ×6 (03:02→23:23)
[2016-12-27] MEDS: ZOSYN 3.375 GM/NS 3.375 GM/50 ML IVPB IV SCH ×4 (04:23→20:39)
[2016-12-27] MEDS: SOLU-MEDROL IV SCH ×3 (04:24→16:56)
[2016-12-27] MEDS: LASIX IV SCH ×3 (04:24→20:38)
[2016-12-27 04:48] LABS: ALLEN TEST YES; BE 28.6 mmoll (-3.0-3.0); BLOOD TYPE ARTERIAL; DRAW SITE R RADIAL; METHB 1.6 % (0.0-1.5); O2(CT) 14.4 mL/dL (15.0-23.0); PO2(98.6) 78 mmHg (60-100); SAMPLE BLOOD; SAO2 97.7 % (95.0-100.0); THB 10.7 g/dL (11.5-17.4); pH(98.6) 7.47 (7.35-7.45)
[2016-12-27 04:51] LABS: MODALITY BI PAP; PCO2(98.6) 78 mmHg (35-45)
[2016-12-27] MEDS: SPIRIVA INH SCH ×2 (07:36)
[2016-12-27] MEDS: BUSPAR PO SCH ×2 (08:15→20:40)
[2016-12-27] MEDS: ELIQUIS PO SCH ×2 (08:15→20:39)
[2016-12-27] MEDS: NAMENDA PO SCH ×2 (08:15→20:40)
[2016-12-27] MEDS: LANOXIN PO SCH (08:15)
[2016-12-27] MEDS: CARDIZEM CD PO SCH (08:16)
[2016-12-27 08:48] LABS: MAGNESIUM 1.7 mg/dL (1.5-2.7)
[2016-12-27 09:13] LABS: HEMATOCRIT 37.4 % (37.0-47.0); HEMOGLOBIN 10.2 g/dL (12.0-16.0); IMM GRAN# 0.03 X1000 (0.0-0.04); IMM GRAN% 0.4 % (0.0-0.5); LYMPH% 4.4 % (20.5-51.1); MANUAL DIFF NEEDED? YES; MCH 25.2 PG (27-31); MCHC 27.3 g/dL (33-37); MCV 92.3 FL (81-99); MONO# 0.34 X1000 (0.11-0.59); MPV 10.9 FL (7.4-10.4); NEUT% 90.2 % (42.2-75.2); PLT 225 X1000 (130-400); RBC 4.05 XMIL (4.2-5.4)
[2016-12-27] MEDS: VANCOMYCIN 1,400 MG in NS 250 ML IV SCH (09:30)
[2016-12-27 09:41] LABS: AGAP 11; BUN 20 mg/dL (8-22); CALCIUM 8.3 mg/dL (8.8-10.2); CHLORIDE 92 mmol/L (98-107); COSMO 300; POTASSIUM 2.6 mmol/L (3.5-5.1); SODIUM 148 mmol/L (136-145); TCO2 45 mmol/L (25-35)
[2016-12-27] MEDS ORDERED: POTASSIUM PHOSPHATE 40 MMOL in NS 250 ML IV ONE (10:30)
[2016-12-27 10:44] LABS: BANDS 2 % (0-1); LYMPHS 8 % (21-51)
[2016-12-27 10:45] LABS: HYPOCHROM 2+
[2016-12-27] MEDS: D5W 1,000 ML IV SCH (11:42)
--- NOTE | 2016-12-27 12:19 | PROGRESS NOTE ---
DATE: 12/27/2016 SUBJECTIVE: No acute events noted overnight. The patient is currently resting comfortably on BiPAP. She has been able to eat a little bit when she is taken off of BiPAP. OBJECTIVE: Vital Signs: Temperature 97 degrees, blood pressure 117/50, heart rate 99, respirations 20, and O2 saturation is 96% on 40% BiPAP. General: This is a chronically ill- appearing, elderly female, lying in bed in no acute distress. Head: Normocephalic, atraumatic. Neck: Supple. No JVD. No lymphadenopathy. Heart: S1 and S2 normal. Irregularly irregular rhythm. Lungs: Equal air entry bilaterally. No crackles. No rales. Abdomen: Positive bowel sounds. Soft, nontender, nondistended. Extremities: No edema. No cyanosis. No calf tenderness. Neurologic: The patient is awake and oriented. No focal neurologic deficits noted. LABORATORIES: White blood cell count 6.7, hemoglobin 10, hematocrit 37, platelets 225,000. Sodium 148, potassium 2.6, chloride 92, CO2 of 45, BUN 20, creatinine 0.9, glucose 159, phosphorus 1.9, magnesium 1.7. ASSESSMENT AND PLAN: 1. Acute hypercapnic respiratory failure secondary to pulmonary edema and pneumonia. Continue on Lasix as well as broad-spectrum antibiotic therapy and bronchodilator therapy. Pulmonary is following. 2. Chronic atrial fibrillation. The patient is currently rate controlled. 3. Pneumonia. Continue on IV antibiotic therapy plus bronchodilator therapy. 4. Hypernatremia. The patient has been started on D5 W. We will monitor the sodium closely. 5. Urinary tract infection secondary to Enterococcus faecalis and Escherichia coli. Continue on IV antibiotic. 6. Pulmonary hypertension. Aware. 7. Acute chronic obstructive pulmonary disease exacerbation. Continue on IV steroid plus bronchodilator therapy. 8. Hypokalemia. Will replace the patient's potassium. 9. Hypophosphatemia. Will replace the patient's phosphorus. 10. Deep vein thrombosis prophylaxis. The patient is currently on Eliquis. cc: Shannen Martinez MD
--- NOTE | 2016-12-27 12:25 | PROGRESS NOTE ---
DATE: 12/27/2016 CHIEF COMPLAINT: Shortness of breath, irregular heartbeat. SUBJECTIVE: Ms. Goldstein is still feeling very short of breath. She is still on a BiPAP system. When they tried to wean her off of the BiPAP system, her heart rate really went very fast to 150 beats a minute or so. She is still in atrial fibrillation. OBJECTIVE: Her pulse right now is 100 beats per minute, blood pressure is 107/66, respirations 18, temperature is 97.4. She is awake, cooperative. HEENT is unremarkable. Chest: Bilateral rhonchi. Diminished breath sounds diffusely. Heart sounds are very distant, irregular. Abdomen is nontender. Extremities show good pulses. No peripheral edema. Neurologic: She is awake, follows commands. She moves all 4 extremities. DIAGNOSTIC DATA: Today the pH is 7.47, pO2 is 78, pCO2 is 78. Her sodium is 148, potassium 2.6, BUN is 20, creatinine 0.9. Magnesium is 1.7, phosphorus is 1.9. Her hemoglobin is 10.2. IMPRESSION: 1. The patient is with respiratory failure, chronic obstructive pulmonary disease decompensation. 2. Atrial fibrillation persistent with rapid response. 3. Hypertension. 4. Anemia. 5. Urinary tract infection which is growing Escherichia coli and Enterococcus faecalis. The enterococcus is sensitive to ampicillin as well as the E. coli. RECOMMENDATIONS: At this point in time, we will try to correct her electrolyte disturbances. She is hypokalemic. We will also keep her on diltiazem drip to try to control her heart rate. We may give her some additional doses of digoxin if needed. We will follow her. Thank you for the opportunity to participate in her evaluation. cc: Ollie Soto MD
[2016-12-27] MEDS: DIAMOX IV SCH (12:33)
[2016-12-27] MEDS: DULCOLAX PR ONE ×2 (12:34→13:11)
[2016-12-27] MEDS: MIRALAX PO SCH ×2 (12:34→20:42)
[2016-12-27] MEDS ORDERED: STERILE WATER INJ. ONE (12:36)
[2016-12-27] MEDS: XANAX PO PRN ×2 (13:06→20:41)
[2016-12-27] MEDS: PROTONIX IV SCH (14:30)
[2016-12-27] MEDS: SODIUM CHLORIDE 0.9% INJ SCH (14:30)
[2016-12-27] MEDS: CARDIZEM 100 MG/NS 100 MG/100 ML IVPB IV SCH (15:23)
[2016-12-28] MEDS: D5W 1,000 ML IV SCH ×2 (00:34→15:19)
[2016-12-28] MEDS: DIAMOX IV SCH ×3 (00:35→20:41)
[2016-12-28] MEDS: DUONEB (A & A) INH SCH ×4 (03:18→15:39)
[2016-12-28 04:50] LABS: ALLEN TEST YES; BE 39.2 mmoll (-3.0-3.0); BLOOD TYPE ARTERIAL; DRAW SITE R RADIAL; METHB 1.5 % (0.0-1.5); O2(CT) 14.5 mL/dL (15.0-23.0); PO2(98.6) 89 mmHg (60-100); SAMPLE BLOOD; SAO2 98.2 % (95.0-100.0); THB 10.7 g/dL (11.5-17.4)
[2016-12-28 04:52] LABS: MODALITY BI PAP; PCO2(98.6) 75 mmHg (35-45); pH(98.6) 7.56 (7.35-7.45)
[2016-12-28] MEDS: ZOSYN 3.375 GM/NS 3.375 GM/50 ML IVPB IV SCH ×4 (05:16→20:36)
[2016-12-28] MEDS: SOLU-MEDROL IV SCH ×2 (05:16→16:35)
[2016-12-28 05:21] LABS: HEMATOCRIT 36.9 % (37.0-47.0); HEMOGLOBIN 10.4 g/dL (12.0-16.0); IMM GRAN# 0.03 X1000 (0.0-0.04); IMM GRAN% 0.4 % (0.0-0.5); LYMPH# 0.37 X1000 (1.2-3.4); LYMPH% 4.7 % (20.5-51.1); MANUAL DIFF NEEDED? NO; MCH 25.1 PG (27-31); MCHC 28.2 g/dL (33-37); MCV 89.1 FL (81-99); MONO# 0.83 X1000 (0.11-0.59); MONO% 10.6 % (1.7-9.3); MPV 10.2 FL (7.4-10.4); NEUT% 84.3 % (42.2-75.2); PLT 221 X1000 (130-400); RBC 4.14 XMIL (4.2-5.4)
[2016-12-28 05:44] LABS: MAGNESIUM 1.6 mg/dL (1.5-2.7)
[2016-12-28 05:56] LABS: BUN 24 mg/dL (8-22); CALCIUM 7.6 mg/dL (8.8-10.2); CHLORIDE 82 mmol/L (98-107); COSMO 291; SODIUM 142 mmol/L (136-145); TCO2 > 50 mmol/L (25-35)
[2016-12-28 05:59] LABS: POTASSIUM 2.5 mmol/L (3.5-5.1)
[2016-12-28] MEDS ORDERED: KLOR-CON PO ONE ×2 (06:45→06:51)
[2016-12-28] MEDS ORDERED: MAGNESIUM SULFATE 2 GM/S.W.I. 2 GM/50 ML IVPB IV ONE (06:52)
[2016-12-28] MEDS: CARDIZEM 100 MG/NS 100 MG/100 ML IVPB IV SCH (07:53)
[2016-12-28] MEDS ORDERED: POTASSIUM PHOSPHATE 40 MEQ in NS 250 ML IV ONE (08:00)
[2016-12-28] MEDS ORDERED: POTASSIUM CHLORIDE 40 MEQ/SWI 40 MEQ/100 ML IVPB IV ONE ×2 (08:00→18:26)
[2016-12-28] MEDS: SPIRIVA INH SCH (08:00)
[2016-12-28] MEDS: NAMENDA PO SCH ×2 (08:03→20:38)
[2016-12-28] MEDS: BUSPAR PO SCH ×2 (08:03→20:39)
[2016-12-28] MEDS: MIRALAX PO SCH ×2 (08:03→20:15)
[2016-12-28] MEDS: LANOXIN PO SCH (08:03)
[2016-12-28] MEDS: ELIQUIS PO SCH ×2 (08:04→20:39)
[2016-12-28] MEDS: CARDIZEM CD PO SCH (08:04)
--- NOTE | 2016-12-28 09:03 | Diag Imaging Result Document ---
PROCEDURE NAME: CHEST-1 VIEW - 12/28/2016 PORTABLE CHEST: Compared with 12/27/2016. FINDINGS: Heart size is within normal limits. There has been interval decrease in hazy opacities at the bilateral bases. The upper lungs remain clear. There is a possible tiny left pleural effusion. There is no pneumothorax seen. PICC remains in place. IMPRESSION: Interval decrease in hazy basilar opacities.
[2016-12-28] MEDS ORDERED: STERILE WATER INJ. ONE ×2 (10:20→21:36)
[2016-12-28] MEDS: VANCOMYCIN 1,400 MG in NS 250 ML IV SCH (10:24)
[2016-12-28] MEDS: SODIUM CHLORIDE 0.9% INJ SCH (15:18)
[2016-12-28] MEDS: PROTONIX IV SCH (15:18)
--- NOTE | 2016-12-28 16:31 | PROGRESS NOTE ---
DATE: 12/28/2016 SUBJECTIVE: The patient is sitting up eating breakfast. She states that she feels okay but she still complains of shortness of breath. OBJECTIVE: Vital Signs: Temperature 97.6 degrees, blood pressure 94/51, heart rate 95, respirations 25, O2 saturations 94% on a Ventimask. General: This is a chronically ill-appearing elderly female lying in bed in no acute distress. Head: Normocephalic, atraumatic. Heart: S1, S2. Normal. Lungs: Clear to auscultation bilaterally. Diminished air entry bilaterally. Abdomen: Positive bowel sounds. Soft, nontender, nondistended. Extremities: No edema. No cyanosis. No calf tenderness. Neurologic: The patient is alert oriented x3. LABS: White blood cell count 7.8, hemoglobin 10, hematocrit 36, platelets 221,000. Sodium 142, potassium 2.8, chloride 82, BUN 24, creatinine 0.9, glucose 173, magnesium 1.6, phosphorus 3.5, calcium 7.6. ASSESSMENT AND PLAN: 1. Acute hypoxemic respiratory failure secondary to volume overload and pneumonia. Continue with current medications as directed by the gas main and line fitter. 2. Urinary tract infection secondary to Enterococcus faecalis and Escherichia coli. Continue IV antibiotic therapy. 3. Chronic atrial fibrillation. Management as per the network control technician. 4. Hypokalemia. Will replace the patient's potassium. 5. Acute chronic obstructive pulmonary disease exacerbation. Continue on IV steroids and bronchodilator therapy. 6. Situational depression. Continue on BuSpar. 7. Alkalosis. The patient has been started on Diamox by the gas main and line fitter. Will continue to monitor for improvement. 8. Dementia. Aware. Continue on Namenda. 9. Gastrointestinal prophylaxis. Continue on Protonix. 10. Deep vein thrombosis prophylaxis. The patient is currently on Eliquis. cc: Shannen Martinez MD
[2016-12-28] MEDS: LASIX IV ONE (20:37)
[2016-12-28] MEDS: XANAX PO PRN (20:39)
[2016-12-29] MEDS: ZOSYN 3.375 GM/NS 3.375 GM/50 ML IVPB IV SCH ×4 (03:00→20:37)
[2016-12-29 04:44] LABS: ALLEN TEST YES; BE 28.4 mmoll (-3.0-3.0); BLOOD TYPE ARTERIAL; DRAW SITE R RADIAL; METHB 1.3 % (0.0-1.5); O2(CT) 15.3 mL/dL (15.0-23.0); PO2(98.6) 123 mmHg (60-100); SAMPLE BLOOD; SAO2 98.9 % (95.0-100.0); THB 11.2 g/dL (11.5-17.4); pH(98.6) 7.47 (7.35-7.45)
[2016-12-29 04:45] LABS: PCO2(98.6) 78 mmHg (35-45)
[2016-12-29 04:46] LABS: MODALITY BI PAP
[2016-12-29] MEDS: LASIX IV ONE (05:00)
[2016-12-29] MEDS: D5W 1,000 ML IV SCH ×2 (05:00→20:41)
[2016-12-29] MEDS: SOLU-MEDROL IV SCH ×2 (05:00→16:55)
[2016-12-29] MEDS: CARDIZEM 100 MG/NS 100 MG/100 ML IVPB IV SCH (05:01)
[2016-12-29 05:08] LABS: HEMATOCRIT 36.7 % (37.0-47.0); HEMOGLOBIN 10.6 g/dL (12.0-16.0); IMM GRAN# 0.02 X1000 (0.0-0.04); IMM GRAN% 0.2 % (0.0-0.5); LYMPH# 0.17 X1000 (1.2-3.4); LYMPH% 1.9 % (20.5-51.1); MANUAL DIFF NEEDED? YES; MCH 25.9 PG (27-31); MCHC 28.9 g/dL (33-37); MCV 89.7 FL (81-99); MONO# 0.51 X1000 (0.11-0.59); MONO% 5.7 % (1.7-9.3); MPV 10.8 FL (7.4-10.4); NEUT% 92.2 % (42.2-75.2); PLT 194 X1000 (130-400); RBC 4.09 XMIL (4.2-5.4)
[2016-12-29 05:19] LABS: MAGNESIUM 2.1 mg/dL (1.5-2.7)
[2016-12-29 05:20] LABS: BANDS 8 % (0-1); HYPOCHROM OCCASIONAL; LYMPHS 2 % (21-51); MONO 6 % (1-9)
[2016-12-29 05:23] LABS: CALCIUM 8.3 mg/dL (8.8-10.2); POTASSIUM 2.7 mmol/L (3.5-5.1)
[2016-12-29] MEDS: DUONEB (A & A) INH SCH ×7 (07:26→22:35)
[2016-12-29] MEDS: SPIRIVA INH SCH (07:26)
[2016-12-29] MEDS ORDERED: POTASSIUM CHLORIDE 60 MEQ in NS 500 ML IV ONE ×2 (07:30→17:00)
--- NOTE | 2016-12-29 07:31 | Diag Imaging Result Document ---
PROCEDURE NAME: CHEST-1 VIEW - 12/27/2016 PORTABLE CHEST: COMPARISON: 12/26/2016. FINDINGS: No change in the right-sided PICC line. The lungs are well expanded. The heart is not enlarged. Mild increased interstitial markings believed to be mild pulmonary edema. I believe there is a small left effusion. There are fewer markings in the lung bases than on the prior exam. IMPRESSION: Mild interval improvement.
[2016-12-29] MEDS: LANOXIN PO SCH (08:16)
[2016-12-29] MEDS: NEUTRA-PHOS PO SCH ×4 (08:16→20:36)
[2016-12-29] MEDS: CARDIZEM CD PO SCH (08:17)
[2016-12-29] MEDS: NAMENDA PO SCH ×2 (08:17→20:36)
[2016-12-29] MEDS: BUSPAR PO SCH ×2 (08:17→20:36)
[2016-12-29] MEDS: ELIQUIS PO SCH ×2 (08:17→20:36)
--- NOTE | 2016-12-29 08:17 | Diag Imaging Result Document ---
PROCEDURE NAME: CHEST-1 VIEW - 12/29/2016 PORTABLE CHEST X-RAY, 12/29/2016: COMPARISON: 12/28/2016. FINDINGS: Stable right PICC line. Stable minimal bibasilar atelectasis or infiltrates. No new infiltrates. Heart size remains top normal. IMPRESSION: No change from prior.
[2016-12-29] MEDS: VANCOMYCIN 1,400 MG in NS 250 ML IV SCH (10:15)
--- NOTE | 2016-12-29 12:44 | PROGRESS NOTE ---
DATE: 12/29/2016 SUBJECTIVE: The patient is resting comfortably on BiPAP. No acute events noted overnight. OBJECTIVE: Vital Signs: Temperature 98, blood pressure 117/66, heart rate 92, respirations 22, O2 saturations 96% on 4 L nasal cannula. General: This is an elderly female, lying in bed, in no acute distress. Head: Normocephalic, atraumatic. Heart: S1, S2. Normal. Tachycardic. Lungs: Clear to auscultation bilaterally. Abdomen: Positive bowel sounds. Soft, nontender, nondistended. Extremities: Trace pedal edema. No cyanosis. No calf tenderness. Neurologic: The patient is alert, oriented x3. LABS: White blood cell count 8.9, hemoglobin 10, hematocrit 36, platelets 194. Sodium 143, potassium 2.7. Chloride 87, CO2 of 46, BUN 21, creatinine 1, glucose 220, phosphorus 2.5, calcium 8.3, magnesium 2.1. ASSESSMENT AND PLAN: 1. Acute hypoxemic respiratory failure secondary to volume overload and pneumonia. Continue on the current management as directed by the kitman. 2. Urinary tract infection secondary to Enterococcus faecalis and E. coli. Continue on IV antibiotics. 3. Chronic atrial fibrillation. Management as per the executive coach. 4. Hypokalemia. Will replace the patient's potassium. 5. Hypophosphatemia. Will replace the patient's phosphorus. 6. Acute chronic obstructive pulmonary disease exacerbation. Continue on bronchodilator therapy and IV steroids. 7. Alkalosis. Improved. 8. Situational depression. Continue on BuSpar. 9. Dementia. Aware. 10. Gastrointestinal prophylaxis. Continue on Protonix. 11. Deep vein thrombosis prophylaxis. The patient is currently on Eliquis. cc: Shanenn Martinez MD
[2016-12-29] MEDS: SODIUM CHLORIDE 0.9% INJ SCH (15:26)
[2016-12-29] MEDS: PROTONIX IV SCH (15:26)
[2016-12-30] MEDS: CARDIZEM 100 MG/NS 100 MG/100 ML IVPB IV SCH ×2 (02:24→20:07)
[2016-12-30] MEDS: ZOSYN 3.375 GM/NS 3.375 GM/50 ML IVPB IV SCH ×4 (02:25→20:08)
[2016-12-30] MEDS: DUONEB (A & A) INH SCH ×6 (03:13→22:54)
[2016-12-30] MEDS: SOLU-MEDROL IV SCH ×2 (03:40→17:29)
[2016-12-30 04:21] LABS: ALLEN TEST YES; BE 20.2 mmoll (-3.0-3.0); BLOOD TYPE ARTERIAL; DRAW SITE R RADIAL; O2(CT) 13.5 mL/dL (15.0-23.0); PO2(98.6) 119 mmHg (60-100); SAMPLE BLOOD; SAO2 98.6 % (95.0-100.0); THB 9.8 g/dL (11.5-17.4); pH(98.6) 7.39 (7.35-7.45)
[2016-12-30 04:22] LABS: MODALITY BI PAP; PCO2(98.6) 80 mmHg (35-45)
[2016-12-30 05:45] LABS: EOS# 0.01 X1000 (0.0-0.7); EOS% 0.1 % (0.0-10.0); HEMOGLOBIN 9.3 g/dL (12.0-16.0); IMM GRAN# 0.04 X1000 (0.0-0.04); IMM GRAN% 0.3 % (0.0-0.5); LYMPH% 1.7 % (20.5-51.1); MANUAL DIFF NEEDED? YES; MCH 24.9 PG (27-31); MCHC 27.4 g/dL (33-37); MCV 91.2 FL (81-99); MPV 11.5 FL (7.4-10.4); NEUT% 92.9 % (42.2-75.2); PLT 173 X1000 (130-400); RBC 3.73 XMIL (4.2-5.4)
[2016-12-30 06:09] LABS: AGAP 11; BUN 20 mg/dL (8-22); CALCIUM 8.5 mg/dL (8.8-10.2); CHLORIDE 94 mmol/L (98-107); COSMO 290; POTASSIUM 4.1 mmol/L (3.5-5.1); SODIUM 142 mmol/L (136-145); TCO2 37 mmol/L (25-35)
[2016-12-30 07:01] LABS: HYPOCHROM 2+; LARGE PLATELETS 1+; LYMPHS 2 % (21-51); MONO 2 % (1-9); NRBC 1 % (0-0)
[2016-12-30] MEDS: SPIRIVA INH SCH (07:35)
--- NOTE | 2016-12-30 08:29 | Diag Imaging Result Doc PS360 ---
CHEST-1 VIEW - 12/30/2016 INDICATION: Shortness of breath COMPARISON: 12/29/2016 FINDINGS: Stable right PICC line in good position. Stable increased markings in the lung bases, nonspecific. No new or substantial infiltrates. Heart size remains top normal. IMPRESSION: No change from prior. Electronically signed by Mitch Staton 12/30/2016 8:27 AM
[2016-12-30] MEDS: BUSPAR PO SCH ×2 (08:49→20:07)
[2016-12-30] MEDS: NEUTRA-PHOS PO SCH (08:50)
[2016-12-30] MEDS: LANOXIN PO SCH (08:50)
[2016-12-30] MEDS: ELIQUIS PO SCH ×2 (08:50→20:08)
[2016-12-30] MEDS: CARDIZEM CD PO SCH (08:50)
[2016-12-30] MEDS: NAMENDA PO SCH ×2 (08:50→20:08)
[2016-12-30] MEDS: VANCOMYCIN 1,400 MG in NS 250 ML IV SCH (10:13)
[2016-12-30] MEDS: XANAX PO PRN (10:44)
[2016-12-30] MEDS: D5W 1,000 ML IV SCH (11:32)
[2016-12-30] MEDS: SODIUM CHLORIDE 0.9% INJ SCH (15:37)
[2016-12-30] MEDS: PROTONIX IV SCH (15:37)
--- NOTE | 2016-12-30 17:57 | PROGRESS NOTE ---
DATE: 12/30/2016 SUBJECTIVE: The patient is sitting up in bed, eating breakfast. No acute events noted overnight. OBJECTIVE: Vital Signs: Temperature 97.8 degrees, blood pressure 133/62, heart rate 93, respirations 23, O2 saturations 92% on 4 L nasal cannula. General: This is an elderly female, lying in bed, in no acute distress. Head: Normocephalic, atraumatic. Heart: S1, S2. Normal. Tachycardic. Lungs: Equal air entry bilaterally. No crackles no rales. Abdomen: Positive bowel sounds. Soft, nontender, nondistended. Extremities: No edema. No cyanosis. No calf tenderness. Neuro: The patient is alert and oriented x3. LABS: White blood cell count 11, hemoglobin 9.3, hematocrit 34, platelets 173,000. ABG; pH is 7.39, pCO2 80, PO2 119, bicarb 40, sodium 142, potassium 4.1, chloride 94, CO2 37, BUN 20, creatinine 0.6, glucose 176, calcium 8.5, magnesium 1.9. ASSESSMENT AND PLAN: 1. Acute hypoxemic respiratory failure secondary to volume overload and pneumonia. Continue on the current regimen as ordered. 2. Urinary tract infection secondary to Enterococcus and Escherichia coli. Continue on the current antibiotic regimen. 3. Chronic atrial fibrillation. Continue on Cardizem. 4. Acute chronic obstructive pulmonary disease exacerbation with hypercapnia. Continue on BiPAP, IV steroids and bronchodilator therapy as directed by the senior military analyst. 5. Situational depression. Continue on buspirone. 6. Dementia. Aware. 7. Gastrointestinal prophylaxis. Continue on Protonix. 8. Deep vein thrombosis prophylaxis. Continue on Eliquis. cc: Shannen Martinez MD
[2016-12-31] MEDS: D5W 1,000 ML IV SCH ×2 (03:28→15:46)
[2016-12-31] MEDS: ZOSYN 3.375 GM/NS 3.375 GM/50 ML IVPB IV SCH ×4 (03:28→20:49)
[2016-12-31] MEDS: DUONEB (A & A) INH SCH ×6 (03:39→22:55)
[2016-12-31 04:19] LABS: ALLEN TEST YES; BE 18.4 mmoll (-3.0-3.0); BLOOD TYPE ARTERIAL; DRAW SITE R RADIAL; METHB 1.2 % (0.0-1.5); O2(CT) 12.4 mL/dL (15.0-23.0); PO2(98.6) 113 mmHg (60-100); SAMPLE BLOOD; SAO2 99.2 % (95.0-100.0)
[2016-12-31 04:21] LABS: MODALITY VENTILATOR
[2016-12-31 04:22] LABS: PCO2(98.6) 74 mmHg (35-45)
[2016-12-31] MEDS: SOLU-MEDROL IV SCH ×2 (04:37→15:46)
[2016-12-31 05:17] LABS: HEMOGLOBIN 9.1 g/dL (12.0-16.0); IMM GRAN# 0.04 X1000 (0.0-0.04); IMM GRAN% 0.4 % (0.0-0.5); LYMPH# 0.19 X1000 (1.2-3.4); LYMPH% 1.7 % (20.5-51.1); MANUAL DIFF NEEDED? YES; MCH 25.8 PG (27-31); MCHC 28.4 g/dL (33-37); MCV 90.7 FL (81-99); MONO# 0.57 X1000 (0.11-0.59); MONO% 5.1 % (1.7-9.3); MPV 11.4 FL (7.4-10.4); NEUT% 92.8 % (42.2-75.2); PLT 139 X1000 (130-400); RBC 3.53 XMIL (4.2-5.4)
[2016-12-31 05:32] LABS: AGAP 8; BUN 18 mg/dL (8-22); CALCIUM 8.2 mg/dL (8.8-10.2); CHLORIDE 94 mmol/L (98-107); COSMO 282; SODIUM 138 mmol/L (136-145); TCO2 36 mmol/L (25-35)
[2016-12-31 05:46] LABS: LYMPHS 26 % (21-51)
--- NOTE | 2016-12-31 07:02 | Diag Imaging Result Doc PS360 ---
EXAM: CHEST-1 VIEW HISTORY: SOB COMMENT: There is a PICC line on the right with its tip in the superior vena cava. The lungs are essentially clear. There is probable COPD. There is been slight clearing of the atelectatic appearing opacities previously present over the right base. The heart size and pulmonary vascularity are within normal limits. IMPRESSION: Improvement in right lower lobe atelectasis. COPD. Electronically signed by Christiano Morales 12/31/2016 7:00 AM
[2016-12-31] MEDS: SPIRIVA INH SCH (07:57)
[2016-12-31] MEDS: NAMENDA PO SCH ×2 (08:03→20:51)
[2016-12-31] MEDS: CARDIZEM CD PO SCH (08:03)
[2016-12-31] MEDS: ELIQUIS PO SCH ×2 (08:04→20:48)
[2016-12-31] MEDS: LANOXIN PO SCH (08:04)
[2016-12-31] MEDS: BUSPAR PO SCH ×2 (08:04→20:48)
[2016-12-31] MEDS: XANAX PO PRN (08:46)
--- NOTE | 2016-12-31 12:17 | PROGRESS NOTE ---
DATE: 12/31/2016 SUBJECTIVE: The patient is resting comfortably in bed. She is currently on BiPAP. She does not have any complaints at this time. OBJECTIVE: Vital Signs: Temperature 98.1, blood pressure 129/61, heart rate 74, respirations 19, O2 saturations is 97% on 5 L nasal cannula. General: This is a chronically-ill appearing, elderly female lying in bed, in no acute distress. HEENT: Head normocephalic and atraumatic. Heart: S1 and S2 normal. Lungs: Clear to auscultation bilaterally. No crackles. No rales. Abdomen: Positive bowel sounds. Soft, nontender, nondistended. Extremities: No edema. No cyanosis. Neurologic: The patient is alert and oriented x3. Labs: White blood cell count 11, hemoglobin 9.1, hematocrit 32, platelets 139,000. Sodium 138, potassium 4, chloride 94, CO2 36, BUN 18, creatinine 0.6, glucose 186. ASSESSMENT AND PLAN: 1. Acute on chronic hypercapnic respiratory failure. Slowly improving. Continue on intravenous steroids, intravenous antibiotics, and bronchodilator therapy. The patient continue with BiPAP at night. 2. Urinary tract infection secondary to Enterococcus and Escherichia coli. Continue on intravenous antibiotic therapy. 3. Chronic atrial fibrillation. Continue on Cardizem. 4. Acute chronic obstructive pulmonary disease exacerbation with hypercapnia. Continue on intravenous steroids and bronchodilator therapy. 5. Situational depression. Continue on BuSpar. 6. Dementia. Aware. 7. Gastrointestinal prophylaxis. Continue on Protonix. 8. Deep venous thrombosis prophylaxis. Continue on Eliquis. 9. We will consult physical therapy. 10. The patient is stable for transfer to CICU. cc: Shannen Martinez MD
[2016-12-31] MEDS: VANCOMYCIN 1,400 MG in NS 250 ML IV SCH (12:32)
[2016-12-31] MEDS: PROTONIX IV SCH (15:46)
[2016-12-31] MEDS: CARDIZEM 100 MG/NS 100 MG/100 ML IVPB IV SCH (16:01)
[2017-01-01] MEDS: DUONEB (A & A) INH SCH ×6 (03:15→23:06)
[2017-01-01] MEDS: SOLU-MEDROL IV SCH ×2 (03:42→16:50)
[2017-01-01] MEDS: ZOSYN 3.375 GM/NS 3.375 GM/50 ML IVPB IV SCH ×4 (03:42→20:54)
[2017-01-01 04:22] LABS: ALLEN TEST YES; BE 17.1 mmoll (-3.0-3.0); BLOOD TYPE ARTERIAL; DRAW SITE R RADIAL; METHB 0.6 % (0.0-1.5); O2(CT) 13.4 mL/dL (15.0-23.0); PO2(98.6) 165 mmHg (60-100); SAMPLE BLOOD; THB 9.5 g/dL (11.5-17.4); pH(98.6) 7.38 (7.35-7.45)
[2017-01-01 04:23] LABS: PCO2(98.6) 76 mmHg (35-45)
[2017-01-01 04:24] LABS: MODALITY BI PAP
[2017-01-01 05:02] LABS: HEMATOCRIT 30.9 % (37.0-47.0); HEMOGLOBIN 8.7 g/dL (12.0-16.0); IMM GRAN# 0.06 X1000 (0.0-0.04); IMM GRAN% 0.5 % (0.0-0.5); LYMPH# 0.31 X1000 (1.2-3.4); LYMPH% 2.6 % (20.5-51.1); MANUAL DIFF NEEDED? YES; MCH 25.7 PG (27-31); MCHC 28.2 g/dL (33-37); MCV 91.2 FL (81-99); MONO# 0.74 X1000 (0.11-0.59); MONO% 6.1 % (1.7-9.3); NEUT% 90.8 % (42.2-75.2); PLT 150 X1000 (130-400); RBC 3.39 XMIL (4.2-5.4)
[2017-01-01 05:12] LABS: HYPOCHROM 1+; LYMPHS 2 % (21-51); MONO 2 % (1-9)
[2017-01-01 05:25] LABS: AGAP 6; BUN 20 mg/dL (8-22); CALCIUM 7.9 mg/dL (8.8-10.2); CHLORIDE 89 mmol/L (98-107); COSMO 280; MAGNESIUM 1.7 mg/dL (1.5-2.7); POTASSIUM 3.8 mmol/L (3.5-5.1); SODIUM 131 mmol/L (136-145); TCO2 36 mmol/L (25-35)
[2017-01-01] MEDS: VANCOMYCIN 1,400 MG in NS 250 ML IV SCH ×2 (05:45→23:45)
[2017-01-01] MEDS: D5W 1,000 ML IV SCH ×2 (05:45→20:53)
--- NOTE | 2017-01-01 07:26 | Diag Imaging Result Doc PS360 ---
EXAM: CHEST-1 VIEW HISTORY: SOB COMPARISON: 12/31/2016 FINDINGS: Heart size appears upper normal and stable. The lungs appear clear of acute changes. There is no pleural effusion or pneumothorax identified. PICC remains in place. IMPRESSION: Stable chest. Electronically signed by Sundar Davis 01/01/2017 7:24 AM
[2017-01-01] MEDS: SPIRIVA INH SCH (08:12)
[2017-01-01] MEDS: ELIQUIS PO SCH ×2 (09:45→20:54)
[2017-01-01] MEDS: NAMENDA PO SCH ×2 (09:45→20:54)
[2017-01-01] MEDS: BUSPAR PO SCH ×2 (09:46→20:54)
[2017-01-01] MEDS: CARDIZEM CD PO SCH (09:46)
[2017-01-01] MEDS: LANOXIN PO SCH (09:46)
[2017-01-01] MEDS ORDERED: SODIUM CHLORIDE 0.9% 10 ML ONE (14:08)
--- NOTE | 2017-01-01 14:37 | PROGRESS NOTE ---
DATE: 01/01/2017 SUBJECTIVE: The patient is sitting up in bed, eating breakfast. She was on BiPAP last night. She has no complaints at this time. OBJECTIVE: Vital Signs: Temperature 97.9 degrees, blood pressure 116/67, heart rate 86, respirations 18, O2 saturations 100% on 5 L nasal cannula. General: This is a chronically ill- appearing, elderly female, lying in bed, in no acute distress. Head: Normocephalic atraumatic. Heart: S1, S2. Normal. Lungs: Equal air entry bilaterally. No crackles. No rales. Abdomen: Bowel sounds soft, nontender, nondistended. Extremities: No edema. No cyanosis. No calf tenderness. Neuro: The patient is alert and oriented x3. LABS: White blood cell count 12, hemoglobin 8.7, hematocrit 30, platelets 115,000. Sodium 131, potassium 3.8, chloride 89, CO2 36. BUN 20, creatinine 0.6, glucose 370. Magnesium 1.7. ASSESSMENT AND PLAN: 1. Acute on chronic hypercapnic respiratory failure. Continue with the current regimen. Continue with BiPAP at night. Pulmonary is following. 2. Urinary tract infection secondary to enterococcus and E. coli. Continue on IV antibiotic therapy. 3. Debility. Physical therapy has been consulted. The patient will likely require rehab after discharge. 4. Chronic atrial fibrillation. Continue on Cardizem. 5. Acute chronic obstructive pulmonary disease exacerbation. Continue on IV steroids plus bronchodilator therapy. 6. Dementia. Aware. 7. Situational depression. Continue on BuSpar. 8. Gastrointestinal prophylaxis. Continue on Protonix. 9. Deep vein thrombosis prophylaxis. Continue on Eliquis. 10. Physical therapy has been consulted. cc: Shannen Martinez MD
[2017-01-01] MEDS: PROTONIX IV SCH (14:43)
[2017-01-01] MEDS: CARDIZEM 100 MG/NS 100 MG/100 ML IVPB IV SCH (14:45)
[2017-01-01] MEDS: XANAX PO PRN (16:50)
[2017-01-02] MEDS: DUONEB (A & A) INH SCH ×6 (03:32→23:29)
[2017-01-02] MEDS: ZOSYN 3.375 GM/NS 3.375 GM/50 ML IVPB IV SCH ×4 (04:03→22:54)
[2017-01-02] MEDS: SOLU-MEDROL IV SCH ×2 (04:04→15:43)
[2017-01-02 04:19] LABS: HEMATOCRIT 33.6 % (37.0-47.0); HEMOGLOBIN 9.4 g/dL (12.0-16.0); IMM GRAN# 0.07 X1000 (0.0-0.04); IMM GRAN% 0.5 % (0.0-0.5); LYMPH# 0.31 X1000 (1.2-3.4); LYMPH% 2.4 % (20.5-51.1); MANUAL DIFF NEEDED? YES; MCH 25.3 PG (27-31); MCV 90.6 FL (81-99); MONO# 0.78 X1000 (0.11-0.59); MPV 10.6 FL (7.4-10.4); NEUT% 91.1 % (42.2-75.2); PLT 146 X1000 (130-400); RBC 3.71 XMIL (4.2-5.4)
[2017-01-02 04:23] LABS: AGAP 6; BUN 21 mg/dL (8-22); CALCIUM 8.3 mg/dL (8.8-10.2); CHLORIDE 96 mmol/L (98-107); COSMO 288; POTASSIUM 4.6 mmol/L (3.5-5.1); SODIUM 141 mmol/L (136-145); TCO2 39 mmol/L (25-35)
[2017-01-02 04:34] LABS: BANDS 10 % (0-1); HYPOCHROM 1+; LYMPHS 2 % (21-51); MONO 6 % (1-9)
--- NOTE | 2017-01-02 07:23 | Diag Imaging Result Doc PS360 ---
CHEST-1 VIEW - 01/02/2017 INDICATION: SOB TECHNIQUE: COMPARISON: 01/01/2017 FINDINGS: Stable right PICC line. There is slight worsening in hazy infiltrate or atelectasis at the right lower lobe. Heart size remains borderline enlarged. Pulmonary vascularity appears normal. IMPRESSION: Slight worsening in hazy infiltrate or atelectasis at the right lower lobe. Electronically signed by Mitch Staton 01/02/2017 7:21 AM
[2017-01-02] MEDS: SPIRIVA INH SCH (07:58)
[2017-01-02] MEDS: ELIQUIS PO SCH ×2 (09:40→21:12)
[2017-01-02] MEDS: LANOXIN PO SCH (09:40)
[2017-01-02] MEDS: CARDIZEM CD PO SCH (09:41)
[2017-01-02] MEDS: NAMENDA PO SCH ×2 (09:41→21:12)
[2017-01-02] MEDS: BUSPAR PO SCH ×2 (09:41→21:12)
[2017-01-02] MEDS: D5W 1,000 ML IV SCH (14:14)
--- NOTE | 2017-01-02 14:36 | PROGRESS NOTE ---
DATE: 01/02/2017 SUBJECTIVE: The patient is resting comfortably. Eating breakfast. She states that she still feels short of breath. OBJECTIVE: Vital Signs: Temperature 98 degrees, blood pressure 129/68, heart rate 73, respirations 18, O2 saturations 100% on a Ventimask. General: This is a chronically ill- appearing, elderly female, lying in bed, in no acute distress. Head: Normocephalic atraumatic. Heart: S1, S2. Normal. Regular rate and rhythm. Lungs: Equal air entry bilaterally. No crackles. No rales. Abdomen: Positive bowel sounds. Soft, nontender, nondistended. Extremities: No edema. No cyanosis. No calf tenderness. Neurologic: The patient is alert and oriented x3. LABS: White blood cell count 12.9, hemoglobin 9.4, hematocrit 33, platelets 146,000. Sodium 141, potassium 4.6, chloride 96, CO2 39. BUN 21, creatinine 0.6, glucose 175. Magnesium 2.1. Digoxin 1.0. ASSESSMENT AND PLAN: 1. Acute on chronic hypercapnic respiratory failure secondary to pneumonia and chronic obstructive pulmonary disease. Continue with the current regimen. We will check a CT of the chest today. 2. Pneumonia. Continue on IV antibiotic therapy. 3. COPD exacerbation. Continue on IV Solu-Medrol, supplemental oxygen, IV antibiotics and bronchodilator therapy. 4. Leukocytosis. This may be secondary to the steroid therapy. Will follow up on the CT of the chest. 5. Urinary tract infection secondary to Enterococcus faecalis and E. coli. Continue on the current antibiotic therapy. Will repeat the urine studies and the urine culture today. 6. Hypertension. Controlled. 7. Chronic atrial fibrillation. The patient is currently rate controlled. 8. Deep venous thrombosis prophylaxis. The patient is currently on Eliquis. cc: Shannen Martinez MD
--- NOTE | 2017-01-02 15:30 | Diag Imaging Result Doc PS360 ---
EXAM: CT THORAX W/O CONTRAST HISTORY: pneumonia TECHNIQUE: CT of the chest without contrast and dose reduction (clarity.) COMMENT: The current study is compared with the previous CT with contrast dated 11/07/2016. There are severe emphysematous changes particularly in the upper lung zones. There is tracheal and bronchomalacia. There are fibrotic opacities at the left base and right base which have not changed appreciably since the previous study. Some consolidation which was present in the right lower lobe in the costophrenic sulcus is still present and there may be a small amount of pleural fluid on both sides. The prevascular node which was noted at the time the previous study has actually decreased in size. The subcarinal nodes which were present at the time the previous study are stable in appearance. There has been some diminishment in the left subhilar node. The regional skeleton is stable in appearance. IMPRESSION: The possibility of minimal pneumonia or atelectasis in the right base cannot be excluded. Otherwise no significant acute abnormality. The prevascular node which was described to on the previous study of 11/07/2016 has diminished in size. Electronically signed by Christiano Morales 01/02/2017 3:28 PM
[2017-01-02] MEDS: PROTONIX IV SCH (15:43)
[2017-01-02 16:33] LABS: URINE CULTURE NEEDED? NO; URINE MICRO REVIEW NEEDED? NO; URINE SOURCE CATH
[2017-01-02 16:37] LABS: BILIRUBIN URINE NEGATIVE (NEGATIVE); BLOOD URINE NEGATIVE (NEGATIVE); COLOR YELLOW; GLUCOSE URINE TRACE mg/dL (NEGATIVE); LEUKOCYTES URINE NEGATIVE (NEGATIVE); NITRITE URINE NEGATIVE (NEGATIVE); PH URINE 6.5; PROTEIN URINE TRACE mg/dL (NEGATIVE); SP GRAVITY URINE 1.018; TURBIDITY URINE CLEAR (CLEAR); UR EPITHELIAL CELLS <10 /HPF (<10); URINE BACTERIA NEGATIVE /HPF; URINE RBC <10 /HPF (<10); URINE WBC <10 /HPF (<10); UROBILINOGEN URINE NORMAL (NORMAL)
[2017-01-02] MEDS: VANCOMYCIN 1,600 MG in NS 250 ML IV SCH (21:12)
[2017-01-02] MEDS: CARDIZEM 100 MG/NS 100 MG/100 ML IVPB IV SCH (22:18)
[2017-01-03] MEDS: CARDIZEM 100 MG/NS 100 MG/100 ML IVPB IV SCH ×2 (03:11→23:36)
[2017-01-03] MEDS: DUONEB (A & A) INH SCH ×6 (03:46→23:15)
[2017-01-03] MEDS: SOLU-MEDROL IV SCH ×2 (03:53→16:38)
[2017-01-03] MEDS: ZOSYN 3.375 GM/NS 3.375 GM/50 ML IVPB IV SCH ×4 (03:53→21:47)
[2017-01-03 04:23] LABS: ALLEN TEST YES; BE 22.7 mmoll (-3.0-3.0); BLOOD TYPE ARTERIAL; DRAW SITE R RADIAL; METHB 0.8 % (0.0-1.5); PO2(98.6) 59 mmHg (60-100); SAMPLE BLOOD; SAO2 92.8 % (95.0-100.0); THB 8.6 g/dL (11.5-17.4); pH(98.6) 7.39 (7.35-7.45)
[2017-01-03 04:32] LABS: MODALITY BI PAP; PCO2(98.6) 84 mmHg (35-45)
[2017-01-03 05:54] LABS: BASO% 0.1 % (0.0-0.8); HEMATOCRIT 30.9 % (37.0-47.0); HEMOGLOBIN 8.8 g/dL (12.0-16.0); IMM GRAN# 0.09 X1000 (0.0-0.04); IMM GRAN% 0.8 % (0.0-0.5); LYMPH# 0.27 X1000 (1.2-3.4); LYMPH% 2.4 % (20.5-51.1); MANUAL DIFF NEEDED? YES; MCH 25.8 PG (27-31); MCHC 28.5 g/dL (33-37); MCV 90.6 FL (81-99); MONO# 0.78 X1000 (0.11-0.59); MPV 11.1 FL (7.4-10.4); NEUT% 89.7 % (42.2-75.2); PLT 149 X1000 (130-400); RBC 3.41 XMIL (4.2-5.4)
[2017-01-03 06:12] LABS: AGAP 6; BUN 23 mg/dL (8-22); CALCIUM 8.2 mg/dL (8.8-10.2); CHLORIDE 97 mmol/L (98-107); COSMO 290; POTASSIUM 4.8 mmol/L (3.5-5.1); SODIUM 142 mmol/L (136-145); TCO2 39 mmol/L (25-35)
--- NOTE | 2017-01-03 07:05 | Diag Imaging Result Doc PS360 ---
EXAM: CHEST-1 VIEW HISTORY: SOB TECHNIQUE: AP portable at 500 hours COMMENT: The right costophrenic angle has been clipped off the image. There is still some atelectasis in the right base but this may be slightly improved since 01/02/2017. Otherwise has been no significant change. IMPRESSION: Slightly improved atelectasis right lower lobe. Electronically signed by Christiano Morales 01/03/2017 7:03 AM
[2017-01-03] MEDS: SPIRIVA INH SCH (07:26)
[2017-01-03 07:30] LABS: BANDS 4 % (0-1); LYMPHS 6 % (21-51); MONO 4 % (1-9)
[2017-01-03 07:31] LABS: HYPOCHROM 1+
[2017-01-03] MEDS: LANOXIN PO SCH (09:18)
[2017-01-03] MEDS: CARDIZEM CD PO SCH (09:18)
[2017-01-03] MEDS: NAMENDA PO SCH ×2 (09:18→21:47)
[2017-01-03] MEDS: ELIQUIS PO SCH ×2 (09:19→21:47)
[2017-01-03] MEDS: BUSPAR PO SCH ×2 (09:19→21:47)
[2017-01-03 09:52] LABS: ALLEN TEST NO; BE 17.6 mmoll (-3.0-3.0); BLOOD TYPE ARTERIAL; DRAW SITE L BRACHIAL; METHB 0.8 % (0.0-1.5); O2(CT) 12.2 mL/dL (15.0-23.0); PO2(98.6) 53 mmHg (60-100); SAMPLE BLOOD; SAO2 91.3 % (95.0-100.0); THB 9.7 g/dL (11.5-17.4); pH(98.6) 7.43 (7.35-7.45)
[2017-01-03 09:53] LABS: MODALITY CANNULA
[2017-01-03 09:54] LABS: PCO2(98.6) 67 mmHg (35-45)
[2017-01-03] MEDS: VANCOMYCIN 1,600 MG in NS 250 ML IV SCH (14:26)
--- NOTE | 2017-01-03 15:18 | PROGRESS NOTE ---
DATE: 01/03/2017 SUBJECTIVE: The patient is resting comfortably in bed. She has no complaints. No acute events noted overnight. OBJECTIVE: Vital Signs: Temperature 98.9 degrees, blood pressure 135/64, heart rate 104, respirations 20, O2 saturation 100% on 6L nasal cannula. General: This is a chronically ill- appearing, elderly female, sitting in bed in no acute distress. Head: Normocephalic, atraumatic. Heart: S1 and S2 normal. Regular rate and rhythm. Lungs: Equal air entry bilaterally. No crackles. No rales. Abdomen: Positive bowel sounds. Soft, obese, nontender, nondistended. Extremities: No edema. No cyanosis. No calf tenderness. Neurologic: The patient is alert and oriented. LABORATORIES: White blood cell count 11, hemoglobin 8.8, hematocrit 30, platelets 149,000. ABG showed pH of 7.43, pCO2 of 67, PO2 of 53, bicarbonate 38. O2 saturation is 91%. Sodium 142, potassium 4.8, chloride 97, CO2 of 39, BUN 23, creatinine 0.6, glucose 148. ASSESSMENT AND PLAN: 1. Acute on chronic hypercapnic respiratory failure secondary to pneumonia and chronic obstructive pulmonary disease. Slowly improving. Continue on the current regimen. 2. Pneumonia. Continue on IV antibiotic therapy. 3. Chronic obstructive pulmonary disease exacerbation. Continue on IV steroids, bronchodilator therapy, and supplemental oxygen. 4. Urinary tract infection secondary to Enterococcus faecalis and Escherichia coli. Continue on IV antibiotic therapy. 5. Hypertension. Controlled. 6. Chronic atrial fibrillation. The patient is currently rate controlled. Continue on Eliquis and Cardizem. 7. Deep vein thrombosis prophylaxis. The patient is on Eliquis. 8. Continue with physical therapy. 9. Disposition: The patient will likely need to be discharged to rehabilitation. Senior Qa Engineer was consulted to assist with this. cc: Shannen Martinez MD
[2017-01-03] MEDS: SODIUM CHLORIDE 0.9% INJ SCH (16:38)
[2017-01-03] MEDS: PROTONIX IV SCH (16:38)
[2017-01-04] MEDS: DUONEB (A & A) INH SCH ×6 (03:38→22:51)
[2017-01-04] MEDS: ZOSYN 3.375 GM/NS 3.375 GM/50 ML IVPB IV SCH ×4 (03:44→21:15)
[2017-01-04] MEDS: SOLU-MEDROL IV SCH (03:44)
[2017-01-04 04:29] LABS: ALLEN TEST YES; BE 20.6 mmoll (-3.0-3.0); BLOOD TYPE ARTERIAL; DRAW SITE R RADIAL; O2(CT) 12.9 mL/dL (15.0-23.0); PO2(98.6) 170 mmHg (60-100); SAMPLE BLOOD; SAO2 98.9 % (95.0-100.0); SRATE 4 BPM; THB 9.2 g/dL (11.5-17.4); pH(98.6) 7.43 (7.35-7.45)
[2017-01-04 04:30] LABS: MODALITY BI PAP; PCO2(98.6) 72 mmHg (35-45)
[2017-01-04 05:40] LABS: HEMATOCRIT 33.8 % (37.0-47.0); HEMOGLOBIN 9.6 g/dL (12.0-16.0); IMM GRAN# 0.12 X1000 (0.0-0.04); IMM GRAN% 0.9 % (0.0-0.5); LYMPH# 0.38 X1000 (1.2-3.4); LYMPH% 2.9 % (20.5-51.1); MANUAL DIFF NEEDED? YES; MCH 25.5 PG (27-31); MCHC 28.4 g/dL (33-37); MCV 89.9 FL (81-99); MONO# 0.65 X1000 (0.11-0.59); MPV 10.8 FL (7.4-10.4); NEUT% 91.2 % (42.2-75.2); PLT 149 X1000 (130-400); RBC 3.76 XMIL (4.2-5.4)
[2017-01-04 05:53] LABS: AGAP 7; BUN 24 mg/dL (8-22); CALCIUM 8.5 mg/dL (8.8-10.2); CHLORIDE 96 mmol/L (98-107); COSMO 289; POTASSIUM 4.9 mmol/L (3.5-5.1); SODIUM 141 mmol/L (136-145); TCO2 38 mmol/L (25-35)
[2017-01-04] MEDS: SPIRIVA INH SCH (07:20)
[2017-01-04 07:31] LABS: BANDS 2 % (0-1); HYPOCHROM 1+; LYMPHS 4 % (21-51); MONO 10 % (1-9)
--- NOTE | 2017-01-04 07:32 | Diag Imaging Result Doc PS360 ---
EXAM: CHEST-1 VIEW HISTORY: SOB TECHNIQUE: AP portable at 500 hours COMMENT: The appearance of the chest has not changed significantly since 01/03/2017. IMPRESSION: Stable chest. Electronically signed by Christiano Morales 01/04/2017 7:29 AM
[2017-01-04] MEDS: ELIQUIS PO SCH ×2 (08:26→21:15)
[2017-01-04] MEDS: CARDIZEM CD PO SCH (08:26)
[2017-01-04] MEDS: NAMENDA PO SCH ×2 (08:26→21:15)
[2017-01-04] MEDS: BUSPAR PO SCH ×2 (08:26→21:15)
[2017-01-04] MEDS: LANOXIN PO SCH (08:27)
[2017-01-04] MEDS: VANCOMYCIN 1,600 MG in NS 250 ML IV SCH (09:25)
[2017-01-04] MEDS ORDERED: CALMOSEPTINE OINTMENT TOP ONE (11:09)
[2017-01-04] MEDS: PROTONIX IV SCH (15:36)
--- NOTE | 2017-01-04 16:51 | PROGRESS NOTE ---
DATE: 01/04/2017 SUBJECTIVE: The patient is resting comfortably in bed. She has no complaints at this time. OBJECTIVE: Vital Signs: Temperature 98.2 degrees, blood pressure 129/55, heart rate 96, respirations 20, O2 saturations 93% on 3 L nasal cannula. General: This is a chronically ill- appearing elderly female lying in bed in no acute distress. Head: Normocephalic, atraumatic. Heart: S1, S2. Normal. Regular rate and rhythm. Lungs: Equal air entry bilaterally. No crackles, no rales. Abdomen: Positive bowel sounds. Soft, nontender, nondistended. Extremities: No edema. No cyanosis. No calf tenderness. Neuro: The patient is awake and alert. She is able to move all 4 extremities. LABS: White blood cell count 12, hemoglobin 9.6, hematocrit 33, platelets 149,000. Sodium 141, potassium 4.9, chloride 96, CO2 38, BUN 24, creatinine 0.6, glucose 161. ASSESSMENT AND PLAN: 1. Acute on chronic hypercapnic respiratory failure secondary to pneumonia and chronic obstructive pulmonary disease. Improved. Continue on IV antibiotics, prednisone, bronchodilator therapy and supplemental oxygen. 2. Pneumonia. Continue on IV antibiotic therapy. 3. Chronic obstructive pulmonary disease exacerbation. Continue on prednisone and bronchodilator therapy. 4. Urinary tract infection secondary to Enterococcus faecalis and Escherichia coli. Resolved. 5. Hypertension. Controlled. 6. Chronic atrial fibrillation. The patient is currently rate controlled. Continue on Cardizem and Eliquis. 7. Deep vein thrombosis prophylaxis. Continue on Eliquis. 8. Continue with physical therapy. 9. Disposition. The patient does have a rehab bed available at [facility]. Will plan to discharge the patient to rehab once cleared by the senior director marketing. cc: Shannen Martinez MD
[2017-01-05] MEDS: DUONEB (A & A) INH SCH ×6 (02:34→23:20)
[2017-01-05] MEDS: VANCOMYCIN 1,600 MG in NS 250 ML IV SCH ×2 (02:44→21:08)
[2017-01-05] MEDS: ZOSYN 3.375 GM/NS 3.375 GM/50 ML IVPB IV SCH ×4 (02:45→20:27)
[2017-01-05 05:56] LABS: EOS# 0.04 X1000 (0.0-0.7); EOS% 0.3 % (0.0-10.0); HEMOGLOBIN 9.2 g/dL (12.0-16.0); IMM GRAN# 0.07 X1000 (0.0-0.04); IMM GRAN% 0.5 % (0.0-0.5); LYMPH# 0.81 X1000 (1.2-3.4); LYMPH% 6.3 % (20.5-51.1); MANUAL DIFF NEEDED? YES; MCH 25.8 PG (27-31); MCHC 28.8 g/dL (33-37); MCV 89.6 FL (81-99); MONO# 0.82 X1000 (0.11-0.59); MONO% 6.4 % (1.7-9.3); MPV 11.2 FL (7.4-10.4); NEUT% 86.5 % (42.2-75.2); PLT 134 X1000 (130-400); RBC 3.57 XMIL (4.2-5.4)
[2017-01-05 06:23] LABS: AGAP 7; BUN 22 mg/dL (8-22); CALCIUM 8.1 mg/dL (8.8-10.2); CHLORIDE 99 mmol/L (98-107); COSMO 290; POTASSIUM 4.4 mmol/L (3.5-5.1); SODIUM 144 mmol/L (136-145); TCO2 38 mmol/L (25-35)
[2017-01-05 07:27] LABS: LYMPHS 5 % (21-51); MONO 1 % (1-9)
[2017-01-05] MEDS: SPIRIVA INH SCH (07:27)
--- NOTE | 2017-01-05 07:35 | Diag Imaging Result Doc PS360 ---
EXAM: CHEST-1 VIEW INDICATION: SOB COMPARISON: 01/04/2017 FINDINGS: Right PICC line is stable. Minimal subsegmental atelectasis at the right lung base is essentially stable. No new consolidation is identified. Cardiac silhouette is stable. IMPRESSION: Essentially stable chest. Electronically signed by Bahman Enriquez 01/05/2017 7:33 AM
[2017-01-05 09:29] LABS: ALLEN TEST YES; BLOOD TYPE ARTERIAL; DRAW SITE R RADIAL; METHB 0.6 % (0.0-1.5); MODALITY CANNULA; O2(CT) 13.2 mL/dL (15.0-23.0); PCO2(98.6) 61 mmHg (35-45); PO2(98.6) 58 mmHg (60-100); SAMPLE BLOOD; SAO2 94.3 % (95.0-100.0); THB 10.2 g/dL (11.5-17.4); pH(98.6) 7.45 (7.35-7.45)
[2017-01-05] MEDS: BUSPAR PO SCH ×2 (10:09→20:27)
[2017-01-05] MEDS: LANOXIN PO SCH (10:10)
[2017-01-05] MEDS: CARDIZEM CD PO SCH (10:10)
[2017-01-05] MEDS: PREDNISONE PO SCH (10:10)
[2017-01-05] MEDS: ELIQUIS PO SCH ×2 (10:10→21:09)
[2017-01-05] MEDS: NAMENDA PO SCH ×2 (10:10→20:27)
[2017-01-05] MEDS: PROTONIX IV SCH (14:34)
[2017-01-05] MEDS: SODIUM CHLORIDE 0.9% INJ SCH (14:34)
[2017-01-06] MEDS: DUONEB (A & A) INH SCH ×3 (03:46→11:06)
[2017-01-06] MEDS: ZOSYN 3.375 GM/NS 3.375 GM/50 ML IVPB IV SCH ×2 (03:54→09:16)
[2017-01-06 04:15] LABS: ALLEN TEST YES; BE 18.3 mmoll (-3.0-3.0); BLOOD TYPE ARTERIAL; DRAW SITE R RADIAL; METHB 1.1 % (0.0-1.5); O2(CT) 14.5 mL/dL (15.0-23.0); PO2(98.6) 184 mmHg (60-100); SAMPLE BLOOD; SAO2 99.6 % (95.0-100.0); THB 10.3 g/dL (11.5-17.4); pH(98.6) 7.46 (7.35-7.45)
[2017-01-06 04:17] LABS: MODALITY BI PAP; PCO2(98.6) 63 mmHg (35-45)
--- NOTE | 2017-01-06 06:10 | Diag Imaging Result Doc PS360 ---
EXAM: CHEST-1 VIEW HISTORY: SOB TECHNIQUE: Portable COMPARISON: 01/05/2017. FINDINGS: The lungs are well expanded. The heart is not enlarged. The vessels are not distended. There are no infiltrates. No effusion identified. There is a right-sided PICC line. IMPRESSION: Negative exam.. Electronically signed by Varun Velarde 01/06/2017 6:07 AM
[2017-01-06 06:56] LABS: EOS# 0.09 X1000 (0.0-0.7); EOS% 0.7 % (0.0-10.0); HEMATOCRIT 30.7 % (37.0-47.0); HEMOGLOBIN 8.7 g/dL (12.0-16.0); IMM GRAN# 0.04 X1000 (0.0-0.04); IMM GRAN% 0.3 % (0.0-0.5); LYMPH# 0.59 X1000 (1.2-3.4); LYMPH% 4.6 % (20.5-51.1); MANUAL DIFF NEEDED? YES; MCH 25.3 PG (27-31); MCHC 28.3 g/dL (33-37); MCV 89.2 FL (81-99); MONO# 0.63 X1000 (0.11-0.59); MONO% 4.9 % (1.7-9.3); MPV 10.7 FL (7.4-10.4); NEUT% 89.5 % (42.2-75.2); PLT 109 X1000 (130-400); RBC 3.44 XMIL (4.2-5.4)
[2017-01-06 06:58] LABS: AGAP 9; BUN 20 mg/dL (8-22); CALCIUM 7.7 mg/dL (8.8-10.2); CHLORIDE 101 mmol/L (98-107); COSMO 291; SODIUM 145 mmol/L (136-145); TCO2 35 mmol/L (25-35)
[2017-01-06 07:14] LABS: BANDS 6 % (0-1); HYPOCHROM 2+; LYMPHS 4 % (21-51); MONO 4 % (1-9)
[2017-01-06] MEDS: SPIRIVA INH SCH (07:45)
--- NOTE | 2017-01-06 08:32 | DISCHARGE SUMMARY ---
ADMISSION DATE: 12/20/2016 DISCHARGE DATE: 01/05/2017 DISCHARGE DIAGNOSES: 1. Acute hypercapnic respiratory failure. 2. Urinary tract infection with Escherichia coli and enterococcus. 3. Chronic obstructive pulmonary disease exacerbation. 4. Recent lower extremity deep venous thrombosis. 5. History of atrial fibrillation. 6. Chronic pancreatitis. DISCHARGE DIAGNOSES: 1. Acute hypercapnic respiratory failure. 2. Urinary tract infection with Escherichia coli and enterococcus. 3. Chronic obstructive pulmonary disease exacerbation. 4. Recent lower extremity deep venous thrombosis. 5. History of atrial fibrillation. 6. Chronic pancreatitis. 7. Pneumonia, bilateral lower lobes. CONSULTATIONS: Dr. Washington, pulmonary, and Dr. Damon, cardiology. HOSPITAL COURSE: Briefly, the patient was admitted on the for shortness of breath. I think she went to [place] first. She had COPD. Placed on nebulizers, breathing treatments. On the , I think she had worsened somewhat and felt that she needed a pulmonary consultation, and had been on BiPAP without improvement. She was in atrial fibrillation, on a Cardizem drip, so she was transferred for further management. She was on Rocephin initially. Dr. Washington was consulted and made some recommendations in changing her medications. She was subsequently weaned off BiPAP. Dr. Damon changed her from IV Cardizem to p.o. and added digoxin. She had already been on Eliquis. Echocardiogram was not obtained this admission because I think she had 1 recently. She had very slow progression. Ended up getting a CT scan on the showing minimal pneumonia but no major abnormalities. Slowly, BiPAP was weaned off. On the , she had improved. She had been on vancomycin and Zosyn for enterococcus infection. On the , she was breathing comfortably with occasional rhonchi. Her saturations were 94-96% on 3 L. She was afebrile. Her white count was still around 12,000 but stable. Her pH was 7.45, pCO2 61, PaO2 of 58 which had been 53 a couple days ago, and that was on 28% reportedly. DISCHARGE CONDITION: Stable. I would recommend a CPAP at night at least for assistance with her breathing. DISCHARGE MEDICATIONS: Tylenol p.r.n., albuterol b.i.d., DuoNebs q.6, Xanax 0.125 t.i.d. p.r.n., Augmentin 500 q.12 for another 10 days - this will cover her E. coli which was sensitive to ampicillin as well as the enterococcus which was also sensitive to ampicillin. She had been on vancomycin and Zosyn here. Eliquis was 5 b.i.d., Dymista daily, BuSpar 15 b.i.d., Lanoxin 125 daily, Cardizem 180 daily CD, docusate 100 p.r.n., Flonase, Lasix 40 daily, gabapentin 300 t.i.d., Imodium p.r.n., Megace 40 t.i.d., melatonin 3 at bedtime, Namenda 10 b.i.d., Reglan 5 t.i.d., multivitamin daily, Prilosec 20 daily, MiraLAX 17 b.i.d., Klor-Con 20 daily, prednisone taper, Zoloft 75 daily, VESIcare 10 daily, and Spiriva daily. DISCHARGE INSTRUCTIONS: She will need followup chest x-ray in 1-2 weeks. Continue to follow very closely. PCP had been Dr. Rogers but I do not think she has reorganized it yet at this point. cc: MD Tomasa Gayle MD Ashish K. Basu, MD
[2017-01-06] MEDS: CARDIZEM CD PO SCH (09:15)
[2017-01-06] MEDS: PREDNISONE PO SCH (09:15)
[2017-01-06] MEDS: LANOXIN PO SCH (09:15)
[2017-01-06] MEDS: ELIQUIS PO SCH (09:15)
[2017-01-06] MEDS: NAMENDA PO SCH (09:16)
[2017-01-06] MEDS: BUSPAR PO SCH (09:17)
[2017-01-06] MEDS: XANAX PO PRN (12:59)
[2017-01-06 13:47] VITALS: BP 117/59
[2017-01-06] MEDS ORDERED: LASIX IV ONE (14:07)
--- NOTE | 2017-01-06 14:25 | PROGRESS NOTE ---
DATE: 01/06/2017 Clinically she appears stable. No major complaints. OBJECTIVE: Blood pressure 117/59, heart rate 91, respiratory 19, temperature 98.1 degrees.Cardiovascular: Regular rate and rhythm. Pulmonary: Bilateral breath sounds. Clear to auscultation. GI: Soft, nontender, nondistended. Bowel sounds are positive. Extremities: No clubbing or cyanosis. Lymphatics: No peripheral edema. Neurological: She had significant edema right leg and lower extremities. LABORATORY DATA: White count 12, hemoglobin and hematocrit 8 and 30, platelets 109,000. Chemistry is actually unremarkable. Blood gas: PCO2 of 63 with a pH 7.46. Briefly this is a 76-year-old, COPD exacerbation. Clinically, she appears to be improving. Plan is for her to go to rehab today. Please refer to previous rehab dictation done yesterday for her discharge medications and other recommendations. She does appear to be a little bit volume overloaded although we are going to put her back on her Lasix. I am going to give her a dose before discharge. cc: Romie Bolton MD
[2017-01-06] MEDS: VANCOMYCIN 1,600 MG in NS 250 ML IV SCH ×2 (14:35→14:42)
[2017-01-06] MEDS: PROTONIX IV SCH (14:36)
[2017-01-06] MEDS: SODIUM CHLORIDE 0.9% INJ SCH (14:36)
== END 2017-01-06 17:07 ==
LOC: P.ED 20:53 → P.MEDSURG 12-20 00:42 → SUATTDRO 12-20 00:42 → P.ICU 12-20 09:48 → ICU 12-23 19:43 → 3S 12-31 14:28 → 3N 01-05 22:49
PROVIDERS: ATTEND Internal Medicine

== ENCOUNTER 2017-01-15 15:04 | Inpatient (IN) ==
[2017-01-15] MEDS ORDERED: NARCAN ONE ×2 (16:13)
[2017-01-15] MEDS ORDERED: NARCAN IV ONE (16:24)
[2017-01-15 16:29] LABS: ALLEN TEST YES; BE 23.5 mmoll (-3.0-3.0); BLOOD TYPE ARTERIAL; DRAW SITE R RADIAL; METHB 0.6 % (0.0-1.5); O2(CT) 12.5 mL/dL (15.0-23.0); PO2(98.6) 72 mmHg (60-100); SAMPLE BLOOD; SAO2 95.7 % (95.0-100.0); THB 9.5 g/dL (11.5-17.4); pH(98.6) 7.24 (7.35-7.45)
[2017-01-15 16:32] LABS: MODALITY CANNULA; PCO2(98.6) 129 mmHg (35-45)
--- NOTE | 2017-01-15 19:10 | PROVIDER DOCUMENTATION ---
This chart was entered by Miguel Weber Scribe, acting as scribe for Ottoniel Watson MD. HPI-Neurological Disorder - General Chief Complaint: Unresponsive Stated Complaint: poss. OD Time Seen by Provider: 01/15/17 15:52 Source: family, EMS, residential records Unable to obtain history due to:: altered Allergies/Adverse Reactions: Patient Allergies Allergy/AdvReac Type Severity Reaction Status Date / Time levofloxacin [From Levaquin] AdvReac Mild reddness Verified 01/15/17 16:06 at IV site Home Medications: Home Medication List Medication Instructions Recorded Confirmed Last Taken Type Azelastine/Fluticasone [Dymista 1 spray NS DAILY 08/04/13 01/15/17 12/19/16 08: 00 History Nasal [place]] 1 spray Gabapentin 300 mg PO TID 08/04/13 01/15/17 12/19/16 21:00 History 300 mg Tiotropium [place] Inhaler 1 puff INH RTDAILY 08/04/13 01/15/17 12/19/16 08:00 History [Spiriva] Buspirone [Buspar] 15 mg PO BID #20 tablet 08/17/13 01/15/17 12/19/16 20:00 Rx 15 mg Memantine [Namenda] 10 mg PO BID #20 tablet 08/17/13 01/15/17 12/19/16 20:00 Rx 10 mg Albuterol [Albuterol Neb] 0.083 mg INH BID 01/14/14 01/15/17 10/05/16 History Fluticasone 50 Mcg Nasal [place] 1 spray MILES DAILY 01/14/14 01/15/17 12/19/16 08: 00 History [Flonase] 1 spray Melatonin 3 mg PO QHS 01/14/14 01/15/17 12/19/16 21:00 History 3 mg Metoclopramide [Reglan] 5 mg PO TID 01/14/14 01/15/17 12/19/16 20:00 History 5 mg Potassium Chloride E.r. [Klor-Con] 20 meq PO DAILY 01/14/14 01/15/17 12/19/16 08 :00 History 20 meq Solifenacin Succinate [Vesicare] 10 mg PO DAILY 01/14/14 01/15/1712/19/17 08: 00 History 10 mg Polyethylene Glycol 3350 [Miralax] 17 gm PO BID 10/05/16 01/15/17 12/19/16 20: 00 History 17 gm Acetaminophen [Pain Relief] 325 mg PO Q4H PRN PRN 11/07/16 01/15/17 Unknown History Docusate Sodium [Dulcolax Stool 100 mg PO PRN PRN 11/07/16 01/15/17 Unknown History Softener] Furosemide [Lasix] 40 mg PO DAILY 11/07/16 01/15/17 12/19/16 08:00 History 40 mg Loperamide [Imodium] 2 mg PO PRN PRN 11/07/16 01/15/17 Unknown History Omeprazole [Prilosec] 20 mg PO DAILY 11/07/16 01/15/17 12/19/16 08:00 History 20 mg Sertraline [Zoloft] 75 mg PO DAILY 11/07/16 01/15/17 12/19/16 08:00 History 75 mg Apixaban [Eliquis] 5 mg PO BID #60 tablet 11/12/16 01/15/17 12/19/16 08:00 Rx 5 mg Albuterol 2.5MG/Ipratrop 0.5MG 1 vial INH Q6H PRN PRN 12/20/16 01/15/17 Unknown History [Duoneb (A & A)] Megestrol Acetate [Megace] 40 mg PO TID 12/20/16 01/15/17 12/19/16 20:00 History 40 mg Multivit,Fe,Ca,FA & Min [Thera M 1 tab PO DAILY 12/20/16 01/15/17 12/19/16 08: 00 History Plus] 1 tab Alprazolam [Xanax] 0.125 mg PO TID PRN PRN #30 tablet 01/05/17 01/15/17 Unknown Rx Amoxicillin/Potassium Clav 1 each PO Q12H #20 tablet 01/05/17 01/15/17 Unknown Rx [Augmentin 500-125 Tablet] Digoxin [Lanoxin] 125 microgm PO DAILY #30 tablet 01/05/17 01/15/17 Unknown Rx Diltiazem C.d. [Cardizem Cd] 180 mg PO DAILY #30 capsule 01/05/17 01/15/17 Unknown Rx Prednisone See Taper PO DAILY #25 tablet 01/05/17 01/15/17 Unknown Rx - History of Present Illness-Neuro Nature of Presenting Problem: patient is a 76 y/o F that presents to the ER unresponsive. Family reports getting called from [facility] after the staff found patient unresponsive and having labor breathing with low o2 saturation. Patient was d/c from hospital last week( on 01/05/17 with Acute hypercapnic respiratory failure, COPD exacerbation) Patient has end-stage COPD and [place]. Patient was given 2mg of Narcan en route with some response but patient became unresponsive again. Family reports that patient has been on xanax due to loss of son recently. Severity: reports: severe Onset/Duration: reports: unsure, this afternoon Timing: reports: still present, constant Context: reports: found unresponsive by residential staff Character of Altered Mental Status: reports: unresponsive Any recent trauma/injury?: reports: none Cognitive Baseline: alert but confused Gait Baseline: unable to walk Associated Symptoms: reports: sleepy. denies: fever/chills, seizures, vomiting Similar Symptoms Previously?: No Recently seen or treated by another doctor?: No Review of Systems - Adult - REVIEW OF SYSTEMS - ADULT ROS:: ROS per family Constitutional: denies: fever Eyes: reports: no symptoms reported Ears, Nose, Mouth & Throat: denies: ear discharge, epistaxis Cardiovascular: reports: no symptoms reported Respiratory: reports: shortness of breath. denies: cough Gastrointestinal: denies: diarrhea, vomiting Genitourinary: reports: no symptoms reported Musculoskeletal: reports: no symptoms reported Integumentary: reports: no symptoms reported Neurological: denies: numbness, seizure Psychiatric: reports: no symptoms reported Endocrine: reports: no symptoms reported Hematologic/Lymphatic: reports: no symptoms reported Allergic/Immunologic: reports: no symptoms reported All Other Systems: Reviewed and Negative Past History - Adult - PAST MEDICAL HISTORY-ADULT Review of Records: reports: Old Records Reviewed, Nursing Assessment Review, Medications Reviewed Cardiovascular: reports: HTN Respiratory: reports: COPD Neurological: reports: dementia Psychiatric: reports: anxiety - PRIOR SURGERIES/PROCEDURES Surgical/Procedure History: reports: reviewed, not pertinent - PRIOR HOSPITALIZATIONS Prior Hospitalizations: reports: none - IMMUNIZATION STATUS Childhood Immunizations: See Nurse Assessment Flu Vaccine: See Nurse Assessment - FAMILY HISTORY Family History: reviewed, not pertinent - SOCIAL HISTORY Smoking: quit greater than 1 year, cigarettes Living Situation: care facility Physical Exam- Neurological - Physical Exam-Neuro General Appearance: severe distress, other (unresponsive) Eye Exam: bilateral eye: other (pinpoint) HENMT: normocephalic/atraumatic, moist mucous membranes Head Injury: no evidence of injury. negative: ecchymosis, lacerations Respiratory: lungs clear, normal breath sounds, no respiratory distress, no accessory muscle use Cardiovascular: no gallop, no murmur Abdominal Exam: normal bowel sounds, soft Extremity: pelvis stable, pedal edema Neurologic: motor weakness (bilateral upper and lower extremities). negative: facial droop Integumentary: pallor. negative: diaphoresis Psych/Mental Status: other (unresponsive) Progress - PLAN OF CARE/RESULTS Progress/Plan/Lab Results: Vital Signs - 8 hr 01/15/17 15:47 01/15/17 16:38 01/15/17 18:31 Temperature 97.4 F L Pulse Rate 82 77 79 Respiratory Rate 18 19 15 Blood Pressure 101/51 107/51 111/60 O2 Sat by Pulse Oximetry 99 94 L 98 Laboratory Results - last 24 hr 01/15/17 01/15/17 15:25 16:23 Specimen Type ARTERIAL Sample Site R RADIAL pH 7.24 L pCO2 129 H* pO2 72 HCO3 43.2 H Base Excess 23.5 H Oxyhemoglobin 93.2 L ABG O2 Sat (Calculated) 12.5 L ABG O2 Saturation 95.7 ABG Carboxyhemoglobin 2.10 ABG Methemoglobin 0.6 Ramon Test YES A-a O2 Difference 23.0 Total Hemoglobin 9.5 L Lactate 0.30 L Blood Gas Modality CANNULA FiO2 % 36.0 POC Glucose 121 H Orders Category Date Time Status DNR [Resuscitation Status] Routine Care 01/15/17 16:50 Ordered ABG [RESP] Routine Lab 01/15/17 16:23 Completed Naloxone [Narcan] Med 01/15/17 16:13 Discontinued 0.4 mg .ROUTE .STK-MED ONE Naloxone [Narcan] Med 01/15/17 16:13 Discontinued 2 mg .ROUTE .STK-MED ONE Naloxone [Narcan] Med 01/15/17 16:24 Discontinued 2 mg IV NOW ONE 1615-2mg of narcan was given with no results after., family reported that patient is a DNR 1640- spoke with family regarding ABGS, family is still in agreement with patient being a DNR, No BiPap, and would like patient to pass away without heroic measures. - REASSESSMENT Reassessment #2 Time Reassessed: 19:07 Status: unchanged Reassessment Comment: Case discussed with family who wishes DNR/comfort measures only - EKG 1 Time of EKG reading by physician:: 15:16 EKG Read and Signed by:: Daniel Blanchard EKG Interpretation (*Must complete 3 of following elements*): Abnormal Rate: 82 Rhythm: NSR [place]: normal PA Interval: normal ST Wave: normal Departure - Departure Date of Disposition Decision: 01/15/17 Time of Disposition Decision: 19:08 DIAGNOSIS: Respiratory failure with hypercapnia Disposition: ADMITTED INPATIENT 09 Certified Medical Emergency: Emergent Condition: Critical Referrals and Follow-Ups: Loc Bran MD [Primary Care Provider] - - Critical Care Note This patient required my direct & personal management of CC.: No Attestation - Physician/ OSIEL Attestation The physician spent face to face time with patient:: Yes Advanced Practice Provider documentation review:: The physician spent face to face time with this patient and agrees with all MLP documentation, treatment, and medical decision making by the MLP. See provider notes for further information. This chart was documented by the indicated scribe, (Miguel Weber, Scribe) and accurately reflects the services I performed and decisions made by me, Ottoniel Watson MD, as attested by the provider's signature.
[2017-01-15] MEDS ORDERED: DUONEB (A & A) INH PRN (20:37)
[2017-01-15] MEDS ORDERED: DURAGESIC 12 MICROGM/HR PATCH TD SCH (20:37)
[2017-01-15] MEDS ORDERED: ZOFRAN IV PRN (20:37)
--- NOTE | 2017-01-15 21:09 | HISTORY AND PHYSICAL ---
PRIMARY CARE PHYSICIAN: No primary care physician. REASON FOR ADMISSION: Unresponsive for the last 2 days. HISTORY OF PRESENT ILLNESS: Ms Mikki Goldstein is a 76-year-old lady with end-stage COPD, dementia, atrial fibrillation who is a [facility] resident. She was admitted here less than a month ago for urinary tract infection and acute hypercapnic respiratory failure. She was brought in via the [facility] where she resides on account of her being unresponsive over the last 24 hours. The [id number] and son-in-law are at bedside and they informed me that they do not know much about what happened today other than what the correction told them, which was that the patient was difficult to arouse. They deny to the best of their knowledge any fever or diarrhea. They informed me that they do not want any heroic measures and they wanted to be admitted for comfort care. REVIEW OF SYSTEMS: Could not be obtained from this patient because of her clinical state. ALLERGIES: She is allergic to Levaquin. MEDICATIONS: She is on albuterol b.i.d. and q.6 p.r.n., Xanax 0.125 mg t.i.d., Eliquis 5 mg b.i.d., Dymista Nasal [place], BuSpar 50 mg daily, digoxin 125 mcg daily, Cardizem CD 180 mg daily, Colace 100 mg p.r.n., Flonase 1 puff daily, Lasix 40 mg daily, gabapentin 300 mg t.i.d., Imodium 2 mg at bedtime, Megace 40 mg t.i.d., melatonin 3 mg at bedtime, Namenda 10 mg b.i.d., Reglan 5 mg t.i.d., multivitamin tablets once daily, omeprazole 20 mg daily, MiraLAX 17 g b.i.d., potassium chloride 20 mEq daily, prednisone 20 mg taper, Zoloft 75 mg daily, VESIcare 10 mg daily, and Spiriva 1 puff daily. FAMILY HISTORY: Unable to obtain at this time. SOCIAL HISTORY: Quit smoking 15 years ago. Unable to get any further history. half-way resident. PAST SURGICAL HISTORY: Per old records. Cataract removal and hemorrhoidectomy. LABORATORY DATA: The only lab work that was done was a blood gas which showed a pH of 7.24, pCO2 129, PO2 of 72. This was done on 36% FiO2. PHYSICAL EXAMINATION: VITAL SIGNS: Blood pressure is 98/65, heart rate is 77, temperature is 97.4 degrees, respirations 19. GENERAL: She is an elderly woman, who is comatose. She responds to sternal rub and occasionally she will have infrequent myoclonic jerking. HEENT: Head is normocephalic, atraumatic. Eyes are miotic but reactive. She is anicteric and not pale. No visual central cyanosis noted. NECK: Supple. No JVD visualized. CHEST: Surprisingly good air entry in both lung kay. CARDIOVASCULAR: First and second heart sounds heard. No gallops or rubs. Rhythm is regular. ABDOMEN: Protuberant, soft, with hypoactive bowel sounds. No tenderness or abdominal rigidity noted. EXTREMITIES: No edema, clubbing or peripheral cyanosis. Pulses are significantly diminished in all extremities and she has cold distal extremities with poor capillary refill. NEUROLOGICAL: Moves extremities to pain but otherwise nil of note. SKIN: Grossly intact otherwise. MUSCULOSKELETAL: No obvious muscular deformities noted. ASSESSMENT: 1. Metabolic encephalopathy secondary to pCO2 narcosis. 2. End-stage chronic obstructive pulmonary disease. 3. Atrial fibrillation. 4. Acute on chronic respiratory failure. 5. Dementia. PLAN: At this time family emphatically state they want purely comfort measures. They are fully aware of the patient's dismal prognosis. The patient was actually given 2 mg of Narcan when she arrived to the hospital, which did not arouse her. [place] inpatient hospice care and I will defer to my colleagues to discuss with the family if they want protracted inpatient hospice care until the patient passes or if they want her to go back to [facility]. cc: Jaleel Toscano MD
[2017-01-15] MEDS: ATIVAN IV PRN (22:38)
[2017-01-15] MEDS: MORPHINE IV PRN (23:09)
--- NOTE | 2017-01-16 05:33 | EKG Report ---
Test Performed on : 01/15/2017 3:16:42 PM Test Reason : No Order in [employer]MEDIA Blood Pressure : / mmHG Vent. Rate : 082 BPM Atrial Rate : 082 BPM P-R Int : 170 ms QRS Dur : 122 ms QT Int : 378 ms P-R-T Axes : 057 039 087 degrees QTc Int : 441 ms Normal sinus rhythm. with sinus arrhythmia. Left bundle branch block Abnormal ECG When compared with ECG of 25-DEC-2016 05:32, Left bundle branch block is now present Criteria for Anterior infarct are no longer present Criteria for Anterolateral infarct are no longer present Unconfirmed Result
[2017-01-16] MEDS: ATIVAN IV PRN ×2 (06:42→22:30)
[2017-01-16] MEDS: MORPHINE IV PRN ×3 (06:47→17:56)
--- NOTE | 2017-01-16 12:07 | PROGRESS NOTE ---
DATE: 01/16/2017 SUBJECTIVE: The patient is currently minimally responsive. She is currently on 100% non- rebreather. OBJECTIVE: Vital signs: Temperature 98.1, blood pressure 62/24, heart rate 98, respirations 11, O2 saturations 100% on a non-rebreather. General: This is a chronically ill-appearing, elderly female, lying in bed. Head: Normocephalic, atraumatic. Heart: S1, S2. Normal. Lungs: Equal air entry bilaterally. No crackles. Abdomen: Positive bowel sounds. Soft, nontender, nondistended. Extremities: Plus 1 edema. ASSESSMENT: 1. [id number] hypercapnic respiratory failure. 2. Chronic obstructive pulmonary disease exacerbation. 3. Metabolic encephalopathy. 4. Atrial fibrillation. 5. Dementia. PLAN: We will continue with comfort measures. cc: Shannen Martinez MD
[2017-01-17] MEDS: ATIVAN IV PRN ×3 (05:08→15:52)
[2017-01-17] MEDS: MORPHINE IV PRN ×5 (07:26→18:16)
--- NOTE | 2017-01-17 12:42 | PROGRESS NOTE ---
DATE: 01/17/2017 SUBJECTIVE: The patient is unresponsive and having shallow respirations. OBJECTIVE: Vital signs: Heart rate is 70, respirations 14, O2 saturation 100% on a nonrebreather, and blood pressure 59/28. General: This is a comatose female lying in bed in no acute distress. HEENT: The head is normocephalic, atraumatic. Heart: S1 and S2 are normal. Lungs: Coarse breath sounds bilaterally. Abdomen: No bowel sounds. Soft and nondistended. Extremities: +1 edema. ASSESSMENT: 1. Acute on chronic hypercapnic respiratory failure. 2. Chronic obstructive pulmonary disease exacerbation. 3. Metabolic encephalopathy. 4. Dementia. 5. Atrial fibrillation. PLAN: We will continue with comfort measures. cc: Shannen Martinez MD
[2017-01-18] MEDS: MORPHINE IV PRN ×3 (00:42→06:43)
[2017-01-18 08:42] VITALS: BP 44/25
--- NOTE | 2017-01-25 19:09 | DISCHARGE SUMMARY ---
ADMISSION DATE: 01/15/2017 DISCHARGE DATE: 01/17/2017 FINAL DISCHARGE DIAGNOSES: 1. Acute on chronic hypercapnic respiratory failure. 2. Acute chronic obstructive pulmonary disease exacerbation. 3. End-stage chronic obstructive pulmonary disorder. 4. Atrial fibrillation. 5. Dementia. HOSPITAL COURSE: Ms. Goldstein is a 76-year-old female who was recently discharged from the hospital after being admitted with respiratory failure secondary to COPD. The patient was brought to the ER after [facility] The patient's daughter-in- law and son-in-law were present at the time of admission and stated that they wanted the patient to be a DNR with comfort measures only. The patient was admitted to the hospitalist service and placed on comfort measures. On 01/17/2017, the patient was noted to be unresponsive. The patient was pronounced at 10:55 a.m. on 01/17/2017. The patient's family was notified of the patient's . cc: Shannen Martinez MD
== END 2017-01-18 10:55 | disposition expired ==
LOC: ED 15:04 → 3N 20:21 → SUATTDRO 20:21
PROVIDERS: ATTEND Internal Medicine